=== PATIENT | female | born 1925 | race Asian ===

== ENCOUNTER 2016-05-08 14:38 | Inpatient (IN) | payer OTHER ==
[~2016-05-08] VITALS: Ht 157.5 cm; Wt 87.2 kg
[~2016-05-08 14:38] MED LIST: ACET-784 PO; AMLO-511 PO; ASPI-825 PO; ATOR20TA86 PO; FERR256T PO; MECL12.585 PO; METF500T7 PO; NAPR500T3 PO
[2016-05-08] MEDS ORDERED: SUCR1TAB22 PO (14:48)
[2016-05-08] MEDS ORDERED: DILTIAZEM HCL 5 MG/ML 5 ML VIAL IVP ONE ×2 (15:00→22:00)
[2016-05-08] MEDS ORDERED: SODIUM CHLORIDE 0.9% 1,000 ML IV ONE (15:00)
[2016-05-08 15:02] LABS: GLUCOSE,POINT OF CARE 220 MG/DL (70-110)
[2016-05-08 15:21] LABS: BASOPHILS % (AUTO) 0.3 % (0.0-2.0); EOSINOPHILS % (AUTO) 1.5 % (1.0-6.0); HEMATOCRIT 35.8 % (36-46); HEMOGLOBIN 11.6 g/dL (12.0-16.0); LYMPHOCYTES # (AUTO) 1.6 K/uL (1.0-4.8); LYMPHOCYTES % (AUTO) 21.1 % (22.0-44.0); MEAN CORPUSCULAR HEMOGLOBIN 30.4 pg (26.0-34.0); MEAN CORPUSCULAR HGB CONC 32.5 G/dL (31.0-37.0); MEAN CORPUSCULAR VOLUME 93 fL (80-100); MONOCYTES # (AUTO) 0.5 K/uL (0.1-1.0); MONOCYTES % (AUTO) 6.6 % (2.0-9.0); NEUTROPHILS # (AUTO) 5.4 K/uL (1.8-7.7); NEUTROPHILS % (AUTO) 70.5 % (40.0-70.0); PLATELET COUNT (AUTO) 216 K/uL (150-450); RED BLOOD CELL COUNT(AUTO) 3.83 MIL/uL (4.00-5.20); RED CELL DISTRIBUTION WIDTH 15.3 % (11.5-14.5); WHITE BLOOD COUNT (AUTO) 7.7 K/uL (4.5-11.0)
[2016-05-08 15:25] LABS: ANION GAP 9 mmol/L (8-16); CARBON DIOXIDE 26 mmol/L (22-29); CHLORIDE 100 mmol/L (98-107); CREATININE 1.21 mg/dL (0.60-1.30); GLOMERULAR FILTR. RATE CALC 42 mL/min (>60); POTASSIUM 4.1 mmol/L (3.5-5.1); SODIUM SERUM 135 mmol/L (136-145); UREA NITROGEN, BLOOD 21 mg/dL (7-18)
[2016-05-08 15:29] LABS: PROTHROMBIN TIME 10.4 SEC (9.4-11.6)
[2016-05-08 15:31] LABS: ALANINE AMINOTRANSFERASE 22 U/L (12-78); ALBUMIN 2.7 g/dL (3.4-5.0); AMYLASE 59 U/L (25-115); ASPARTATE AMINOTRANSFERASE 17 U/L (15-37); BILIRUBIN,TOTAL 0.5 mg/dL (0.1-1.0); CREATINE KINASE, TOTAL 62 U/L (26-192); TOTAL PROTEIN, SERUM 6.1 g/dL (6.4-8.2)
[2016-05-08 16:26] LABS: B-TYPE NATRIURETIC PEPTIDE 600 pg/mL (0-100)
[2016-05-08 17:11] LABS: APPEARANCE,URINE CLEAR (CLEAR); GLUCOSE, URINE (UA) NEGATIVE (NEGATIVE); KETONES,URINE NEGATIVE (NEGATIVE); LEUKOCYTE ESTERASE ,URINE NEGATIVE (NEGATIVE); OCCULT BLOOD,URINE NEGATIVE (NEGATIVE); PH,URINE 6.5 (5.0-8.0); PROTEIN,URINE NEGATIVE (NEGATIVE)
[2016-05-08 17:19] LABS: SQUAMOUS EPITHELIAL CELL,UR Few /LPF (None Seen)
[2016-05-08 17:24] LABS: RBC,URINE None Seen /HPF (0-2)
[2016-05-08 18:34] VITALS: BP 148/82
[2016-05-08 19:31] VITALS: BP 145/65
[2016-05-08] MEDS ORDERED: IPRATROPIUM BROMIDE 0.5 MG/2.5 ML NEB SOLUTION NEB PRN (20:15)
[2016-05-08] MEDS ORDERED: ONDANSETRON HCL 4 MG/2 ML VIAL IVP PRN (20:15)
[2016-05-08] MEDS ORDERED: ZOLPIDEM TARTRATE 5 MG TABLET PO PRN (20:15)
[2016-05-08] MEDS ORDERED: METOPROLOL SUCCINATE 25 MG ER TABLET PO ONE (20:15)
[2016-05-08] MEDS ORDERED: ALBUTEROL SULFATE 2.5 MG/0.5 ML NEB SOLUTION NEB PRN (20:15)
[2016-05-08] MEDS ORDERED: HEPARIN SODIUM,PORCINE 5,000 UNITS/ML VIAL IVP PRN ×2 (20:30)
[2016-05-08] MEDS ORDERED: HEPARIN SODIUM,PORCINE 5,000 UNITS/ML VIAL IVP ONE (20:30)
[2016-05-08] MEDS ORDERED: SODIUM CHLORIDE 0.9% 500 ML IV ONE (21:15)
[2016-05-08] MEDS: SUCRALFATE 1 GM TABLET PO SCH (21:16)
[2016-05-08] MEDS: ATORVASTATIN CALCIUM 40 MG TABLET PO SCH (21:16)
[2016-05-08 21:24] LABS: BASOPHILS # (AUTO) 0.07 K/uL (0.00-0.20); BASOPHILS % (AUTO) 0.9 % (0.0-2.0); EOSINOPHILS # (AUTO) 0.14 K/uL (0.00-0.70); EOSINOPHILS % (AUTO) 1.73 % (1.0-6.0); HEMATOCRIT 36.9 % (36-46); HEMOGLOBIN 12.1 g/dL (12.0-16.0); LYMPHOCYTES # (AUTO) 1.5 K/uL (1.0-4.8); LYMPHOCYTES % (AUTO) 18.5 % (22.0-44.0); MEAN CORPUSCULAR HEMOGLOBIN 30.7 pg (26.0-34.0); MEAN CORPUSCULAR HGB CONC 32.8 G/dL (31.0-37.0); MEAN CORPUSCULAR VOLUME 94 fL (80-100); MONOCYTES # (AUTO) 0.4 K/uL (0.1-1.0); MONOCYTES % (AUTO) 5.5 % (2.0-9.0); NEUTROPHILS # (AUTO) 5.8 K/uL (1.8-7.7); NEUTROPHILS % (AUTO) 73.4 % (40.0-70.0); PLATELET COUNT (AUTO) 211 K/uL (150-450); RED BLOOD CELL COUNT(AUTO) 3.94 MIL/uL (4.00-5.20); WHITE BLOOD COUNT (AUTO) 7.9 K/uL (4.5-11.0)
[2016-05-08] MEDS: HEPARIN SODIUM 25000 UNITS/D5W 250 ML IV PRN (21:41)
[2016-05-08 21:47] LABS: PROTHROMBIN TIME 10.5 SEC (9.4-11.6); THYROID STIMULATING HORMONE 3.55 uIU/mL (0.36-3.74)
[2016-05-08] MEDS ORDERED: DILTIAZEM HCL 125 MG in DEXTROSE 5%-WATER 100 ML IV PRN (21:57)
[2016-05-08 22:25] VITALS: BP 164/104
[2016-05-09] VITALS (9 sets, daily range): BP systolic 114–142; BP diastolic 56–77
[2016-05-09] MEDS ORDERED: SODIUM CHLORIDE 0.9% 250 ML IV ONE (04:28)
[2016-05-09 05:37] LABS: BASOPHILS # (AUTO) 0.04 K/uL (0.00-0.20); BASOPHILS % (AUTO) 0.4 % (0.0-2.0); EOSINOPHILS # (AUTO) 0.11 K/uL (0.00-0.70); HEMATOCRIT 34.3 % (36-46); HEMOGLOBIN 11.5 g/dL (12.0-16.0); LYMPHOCYTES # (AUTO) 1.6 K/uL (1.0-4.8); LYMPHOCYTES % (AUTO) 17.2 % (22.0-44.0); MEAN CORPUSCULAR HGB CONC 33.5 G/dL (31.0-37.0); MEAN CORPUSCULAR VOLUME 93 fL (80-100); MONOCYTES # (AUTO) 0.7 K/uL (0.1-1.0); NEUTROPHILS # (AUTO) 6.9 K/uL (1.8-7.7); NEUTROPHILS % (AUTO) 74.2 % (40.0-70.0); PLATELET COUNT (AUTO) 220 K/uL (150-450); RED BLOOD CELL COUNT(AUTO) 3.71 MIL/uL (4.00-5.20); WHITE BLOOD COUNT (AUTO) 9.3 K/uL (4.5-11.0)
[2016-05-09 05:47] LABS: ALBUMIN 2.4 g/dL (3.4-5.0); BILIRUBIN,TOTAL 0.7 mg/dL (0.1-1.0); CALCIUM, TOTAL 8.1 mg/dL (8.8-10.5); CREATININE 1.02 mg/dL (0.60-1.30); POTASSIUM 4.2 mmol/L (3.5-5.1); TOTAL PROTEIN, SERUM 5.8 g/dL (6.4-8.2)
[2016-05-09] MEDS ORDERED: DEXTROSE 50%-WATER 25 GM/50 ML SYRINGE IVP PRN (06:00)
[2016-05-09] MEDS: INSULIN ASPART 100 UNITS/ML SQ PRN ×3 (06:31→20:12)
[2016-05-09] MEDS: HYDROCODONE/ACETAMINOPHEN 5-325 MG TABLET PO PRN (07:54)
[2016-05-09] MEDS: GuaiFENesin/CODEINE [SUGAR FREE] 200-20MG/10 ML SYRUP UDCUP PO PRN ×3 (07:54→21:32)
[2016-05-09] MEDS: SUCRALFATE 1 GM TABLET PO SCH ×2 (08:01→20:02)
[2016-05-09] MEDS: ATORVASTATIN CALCIUM 40 MG TABLET PO SCH (08:01)
[2016-05-09] MEDS: PANTOPRAZOLE SODIUM 40 MG/VIAL IVP SCH (08:01)
[2016-05-09] MEDS ORDERED: ATOR40TA28 PO (11:38)
[2016-05-09] MEDS ORDERED: FERG325 PO (11:38)
[2016-05-09] MEDS ORDERED: MECL-111 PO (11:38)
[2016-05-09] MEDS ORDERED: AMIODARONE HCL 50 MG in DEXTROSE 5%-WATER 99 ML IV ONE (11:45)
[2016-05-09] MEDS ORDERED: AMIODARONE HCL 360 MG in DEXTROSE 5%-WATER 242.8 ML IV ONE (12:00)
[2016-05-09] MEDS ORDERED: 0.9% SODIUM CHLORIDE 10 ML SYRINGE IVP PRN (12:30)
[2016-05-09 12:54] LABS: INFLUENZA TYPE B NEGATIVE FOR TYPE B (NEGATIVE)
[2016-05-09] MEDS: HEPARIN SODIUM 25000 UNITS/D5W 250 ML IV PRN ×2 (17:31→21:26)
[2016-05-09] MEDS ORDERED: AMIODARONE HCL 540 MG in DEXTROSE 5%-WATER 239.2 ML IV ONE (18:00)
[2016-05-10 04:27] VITALS: BP 134/52
[2016-05-10] MEDS: HEPARIN SODIUM 25000 UNITS/D5W 250 ML IV PRN (04:58)
[2016-05-10] MEDS: INSULIN ASPART 100 UNITS/ML SQ PRN ×3 (06:31→23:12)
[2016-05-10 06:49] LABS: BASOPHILS % (AUTO) 0.4 % (0.0-2.0); EOSINOPHILS % (AUTO) 1.2 % (1.0-6.0); HEMATOCRIT 32.3 % (36-46); HEMOGLOBIN 10.5 g/dL (12.0-16.0); LYMPHOCYTES # (AUTO) 1.4 K/uL (1.0-4.8); LYMPHOCYTES % (AUTO) 15.2 % (22.0-44.0); MEAN CORPUSCULAR HEMOGLOBIN 30.7 pg (26.0-34.0); MEAN CORPUSCULAR HGB CONC 32.5 G/dL (31.0-37.0); MEAN CORPUSCULAR VOLUME 95 fL (80-100); MONOCYTES # (AUTO) 0.8 K/uL (0.1-1.0); MONOCYTES % (AUTO) 8.4 % (2.0-9.0); NEUTROPHILS % (AUTO) 74.8 % (40.0-70.0); PLATELET COUNT (AUTO) 187 K/uL (150-450); RED BLOOD CELL COUNT(AUTO) 3.41 MIL/uL (4.00-5.20); RED CELL DISTRIBUTION WIDTH 15.2 % (11.5-14.5); WHITE BLOOD COUNT (AUTO) 9.4 K/uL (4.5-11.0)
[2016-05-10 07:24] LABS: ALBUMIN 2.3 g/dL (3.4-5.0); BILIRUBIN,TOTAL 0.9 mg/dL (0.1-1.0); CALCIUM, TOTAL 7.9 mg/dL (8.8-10.5); CREATININE 1.23 mg/dL (0.60-1.30); POTASSIUM 4.3 mmol/L (3.5-5.1); TOTAL PROTEIN, SERUM 5.9 g/dL (6.4-8.2)
[2016-05-10 07:37] VITALS: BP 143/58
[2016-05-10 08:11] LABS: MAGNESIUM 1.7 mg/dL (1.80-2.40)
[2016-05-10] MEDS: SUCRALFATE 1 GM TABLET PO SCH ×2 (10:05→21:18)
[2016-05-10] MEDS: PANTOPRAZOLE SODIUM 40 MG/VIAL IVP SCH (10:05)
[2016-05-10] MEDS: ATORVASTATIN CALCIUM 40 MG TABLET PO SCH (10:05)
[2016-05-10] MEDS: GuaiFENesin/CODEINE [SUGAR FREE] 200-20MG/10 ML SYRUP UDCUP PO PRN (11:02)
[2016-05-10] MEDS: HYDROCODONE/ACETAMINOPHEN 5-325 MG TABLET PO PRN ×2 (11:03→21:18)
[2016-05-10] MEDS: APIXABAN 2.5 MG TABLET PO SCH ×2 (12:09→21:18)
[2016-05-10] MEDS: AMIODARONE HCL 750 MG in DEXTROSE 5%-WATER 485 ML IV SCH (12:10)
[2016-05-10 12:11] VITALS: BP 110/60
[2016-05-10] MEDS ORDERED: BARIUM SULFATE 0.1% SUSPENSION 450 ML BOTTLE ONE ×2 (15:14→15:15)
[2016-05-10] MEDS ORDERED: SODIUM CHLORIDE 0.45% 1,000 ML IV ONE (15:15)
[2016-05-10 15:50] VITALS: BP 122/71
[2016-05-10] MEDS: AMIODARONE HCL 200 MG TABLET PO SCH ×2 (15:54→21:22)
[2016-05-10] MEDS ORDERED: IOVERSOL 350 MG/ML 150 ML VIAL ONE (18:15)
[2016-05-10] MEDS ORDERED: SODIUM CHLORIDE 0.9% 100 ML ONE (18:17)
[2016-05-10 20:33] VITALS: BP 115/52
[2016-05-10 22:46] LABS: GLUCOSE COMMENT 1 Received Meds; GLUCOSE,POINT OF CARE 163 MG/DL (70-110)
[2016-05-10 22:51] LABS: GLUCOSE,POINT OF CARE 123 MG/DL (70-110)
[2016-05-10 22:51] LABS: GLUCOSE COMMENT 1 Received Meds; GLUCOSE,POINT OF CARE 148 MG/DL (70-110)
[2016-05-10 23:48] VITALS: BP 108/50
[2016-05-11] VITALS (19 sets, daily range): BP systolic 93–138; BP diastolic 37–72
[2016-05-11] MEDS: INSULIN ASPART 100 UNITS/ML SQ PRN ×4 (06:37→20:35)
[2016-05-11] MEDS: APIXABAN 2.5 MG TABLET PO SCH ×2 (08:07→08:16)
[2016-05-11] MEDS: GuaiFENesin/CODEINE [SUGAR FREE] 200-20MG/10 ML SYRUP UDCUP PO PRN ×3 (08:07→20:29)
[2016-05-11] MEDS: SUCRALFATE 1 GM TABLET PO SCH ×2 (08:07→20:28)
[2016-05-11] MEDS: PANTOPRAZOLE SODIUM 40 MG/VIAL IVP SCH (08:08)
[2016-05-11] MEDS: ATORVASTATIN CALCIUM 20 MG TABLET PO SCH (08:08)
[2016-05-11] MEDS: AMIODARONE HCL 200 MG TABLET PO SCH ×3 (08:08→20:28)
[2016-05-11] MEDS ORDERED: MAGNESIUM HYDROXIDE SUSPENSION 30 ML UDCUP PO PRN (08:15)
[2016-05-11] MEDS: DOCUSATE SODIUM 100 MG CAPSULE PO SCH ×2 (08:19→20:28)
[2016-05-11 08:25] LABS: ALBUMIN 2.2 g/dL (3.4-5.0); BILIRUBIN,TOTAL 0.9 mg/dL (0.1-1.0); CALCIUM, TOTAL 7.8 mg/dL (8.8-10.5); CREATININE 1.44 mg/dL (0.60-1.30); MAGNESIUM 1.7 mg/dL (1.80-2.40); POTASSIUM 4.4 mmol/L (3.5-5.1); TOTAL PROTEIN, SERUM 6.1 g/dL (6.4-8.2)
[2016-05-11 08:31] LABS: BASOPHILS # (AUTO) 0.01 K/uL (0.00-0.20); BASOPHILS % (AUTO) 0.1 % (0.0-2.0); EOSINOPHILS # (AUTO) 0.08 K/uL (0.00-0.70); EOSINOPHILS % (AUTO) 0.83 % (1.0-6.0); HEMATOCRIT 25.1 % (36-46); HEMOGLOBIN 8.2 g/dL (12.0-16.0); LYMPHOCYTES # (AUTO) 0.7 K/uL (1.0-4.8); LYMPHOCYTES % (AUTO) 7.5 % (22.0-44.0); MEAN CORPUSCULAR HEMOGLOBIN 30.5 pg (26.0-34.0); MEAN CORPUSCULAR HGB CONC 32.7 G/dL (31.0-37.0); MEAN CORPUSCULAR VOLUME 93 fL (80-100); MONOCYTES # (AUTO) 0.7 K/uL (0.1-1.0); MONOCYTES % (AUTO) 6.6 % (2.0-9.0); NEUTROPHILS # (AUTO) 8.4 K/uL (1.8-7.7); PLATELET COUNT (AUTO) 207 K/uL (150-450); RED CELL DISTRIBUTION WIDTH 15.5 % (11.5-14.5); WHITE BLOOD COUNT (AUTO) 9.8 K/uL (4.5-11.0)
[2016-05-11] MEDS ORDERED: MAGNESIUM OXIDE 400 MG TABLET PO ONE (08:45)
[2016-05-11] MEDS: ACETAMINOPHEN 325 MG TABLET PO PRN (11:04)
[2016-05-11] MEDS: AMIODARONE HCL 750 MG in DEXTROSE 5%-WATER 485 ML IV SCH (13:03)
[2016-05-11] MEDS ORDERED: SODIUM CHLORIDE 0.9% 250 ML IV ONE (13:08)
[2016-05-11 17:33] LABS: GLUCOSE,POINT OF CARE 137 MG/DL (70-110)
[2016-05-11 17:33] LABS: GLUCOSE COMMENT 1 Received Meds; GLUCOSE,POINT OF CARE 207 MG/DL (70-110)
[2016-05-11 17:37] LABS: GLUCOSE,POINT OF CARE 182 MG/DL (70-110)
[2016-05-11] MEDS ORDERED: FUROSEMIDE 20 MG/2 ML VIAL IVP ONE (21:00)
[2016-05-12 01:32] VITALS: BP 159/98
[2016-05-12 04:07] LABS: GLUCOSE,POINT OF CARE 141 MG/DL (70-110)
[2016-05-12 04:07] LABS: GLUCOSE COMMENT 1 Received Meds; GLUCOSE,POINT OF CARE 163 MG/DL (70-110)
[2016-05-12 04:10] VITALS: BP 145/87
[2016-05-12] MEDS: INSULIN ASPART 100 UNITS/ML SQ PRN ×4 (06:32→20:38)
[2016-05-12 07:10] LABS: BASOPHILS # (AUTO) 0.01 K/uL (0.00-0.20); BASOPHILS % (AUTO) 0.1 % (0.0-2.0); EOSINOPHILS # (AUTO) 0.12 K/uL (0.00-0.70); HEMOGLOBIN 10.5 g/dL (12.0-16.0); LYMPHOCYTES # (AUTO) 0.9 K/uL (1.0-4.8); LYMPHOCYTES % (AUTO) 8.7 % (22.0-44.0); MEAN CORPUSCULAR HEMOGLOBIN 30.9 pg (26.0-34.0); MEAN CORPUSCULAR HGB CONC 33.9 G/dL (31.0-37.0); MEAN CORPUSCULAR VOLUME 91 fL (80-100); MONOCYTES # (AUTO) 0.9 K/uL (0.1-1.0); MONOCYTES % (AUTO) 8.5 % (2.0-9.0); NEUTROPHILS # (AUTO) 8.7 K/uL (1.8-7.7); NEUTROPHILS % (AUTO) 81.6 % (40.0-70.0); PLATELET COUNT (AUTO) 208 K/uL (150-450); RED CELL DISTRIBUTION WIDTH 15.5 % (11.5-14.5); WHITE BLOOD COUNT (AUTO) 10.6 K/uL (4.5-11.0)
[2016-05-12 07:17] LABS: ALBUMIN 2.1 g/dL (3.4-5.0); BILIRUBIN,TOTAL 1.1 mg/dL (0.1-1.0); CALCIUM, TOTAL 8.1 mg/dL (8.8-10.5); CREATININE 1.54 mg/dL (0.60-1.30); MAGNESIUM 1.8 mg/dL (1.80-2.40); POTASSIUM 4.7 mmol/L (3.5-5.1); TOTAL PROTEIN, SERUM 6.1 g/dL (6.4-8.2)
[2016-05-12 07:43] VITALS: BP 148/84
[2016-05-12 08:52] LABS: GLUCOSE,POINT OF CARE 173 MG/DL (70-110)
[2016-05-12] MEDS: GuaiFENesin/CODEINE [SUGAR FREE] 200-20MG/10 ML SYRUP UDCUP PO PRN ×3 (09:42→21:33)
[2016-05-12] MEDS: PANTOPRAZOLE SODIUM 40 MG/VIAL IVP SCH (09:43)
[2016-05-12] MEDS: SUCRALFATE 1 GM TABLET PO SCH ×2 (09:44→20:34)
[2016-05-12] MEDS: ATORVASTATIN CALCIUM 20 MG TABLET PO SCH (09:44)
[2016-05-12] MEDS: AMIODARONE HCL 200 MG TABLET PO SCH ×3 (09:44→20:34)
[2016-05-12] MEDS: DOCUSATE SODIUM 100 MG CAPSULE PO SCH ×2 (09:44→20:34)
[2016-05-12 11:30] VITALS: BP 162/86
[2016-05-12] MEDS: AMIODARONE HCL 750 MG in DEXTROSE 5%-WATER 485 ML IV SCH (13:29)
[2016-05-12 15:28] VITALS: BP 118/61
[2016-05-12] MEDS: MethylPREDNISolone SOD SUCC 40 MG/ML VIAL IVP SCH ×2 (18:57→23:17)
[2016-05-12 19:35] VITALS: BP 125/56
[2016-05-12] MEDS ORDERED: DIGOXIN 250 MCG/ML 2 ML AMP IVP ONE (19:45)
[2016-05-12] MEDS: IPRATROPIUM BROMIDE 0.5 MG/2.5 ML NEB SOLUTION NEB SCH ×2 (20:07→22:45)
[2016-05-12] MEDS: ALBUTEROL SULFATE 2.5 MG/0.5 ML NEB SOLUTION NEB SCH ×2 (20:07→22:45)
[2016-05-12] MEDS ORDERED: BISACODYL 10 MG RECTAL RECTAL SUPPOSITORY PR PRN (22:15)
[2016-05-13 00:07] VITALS: BP 112/76
[2016-05-13] MEDS: IPRATROPIUM BROMIDE 0.5 MG/2.5 ML NEB SOLUTION NEB SCH ×6 (02:50→23:22)
[2016-05-13] MEDS: ALBUTEROL SULFATE 2.5 MG/0.5 ML NEB SOLUTION NEB SCH ×3 (02:50→11:43)
[2016-05-13 04:15] VITALS: BP 137/79
[2016-05-13] MEDS: GuaiFENesin/CODEINE [SUGAR FREE] 200-20MG/10 ML SYRUP UDCUP PO PRN ×4 (04:38→22:58)
[2016-05-13] MEDS: INSULIN ASPART 100 UNITS/ML SQ PRN ×4 (06:12→21:38)
[2016-05-13] MEDS: MethylPREDNISolone SOD SUCC 40 MG/ML VIAL IVP SCH ×4 (06:19→23:02)
[2016-05-13] MEDS ORDERED: *CLINICAL-LEVOFLOXACIN IVPB DOSING CLINICAL ONE ×2 (06:30)
[2016-05-13 07:12] LABS: GLUCOSE COMMENT 1 Received Meds; GLUCOSE,POINT OF CARE 183 MG/DL (70-110)
[2016-05-13 07:28] VITALS: BP 110/54
[2016-05-13 07:57] LABS: EOSINOPHILS % (AUTO) 0 % (1.0-6.0); HEMATOCRIT 32.1 % (36-46); HEMOGLOBIN 10.5 g/dL (12.0-16.0); LYMPHOCYTES # (AUTO) 0.2 K/uL (1.0-4.8); LYMPHOCYTES % (AUTO) 1.7 % (22.0-44.0); MEAN CORPUSCULAR HEMOGLOBIN 30.2 pg (26.0-34.0); MEAN CORPUSCULAR HGB CONC 32.8 G/dL (31.0-37.0); MEAN CORPUSCULAR VOLUME 92 fL (80-100); MONOCYTES # (AUTO) 0.2 K/uL (0.1-1.0); MONOCYTES % (AUTO) 1.9 % (2.0-9.0); NEUTROPHILS # (AUTO) 11.6 K/uL (1.8-7.7); PLATELET COUNT (AUTO) 244 K/uL (150-450); RED BLOOD CELL COUNT(AUTO) 3.49 MIL/uL (4.00-5.20); WHITE BLOOD COUNT (AUTO) 12.1 K/uL (4.5-11.0)
[2016-05-13 08:13] LABS: NEUTROPHILS % (AUTO) 96.4 % (40.0-70.0)
[2016-05-13 08:27] LABS: ALBUMIN 2.1 g/dL (3.4-5.0); BILIRUBIN,TOTAL 0.7 mg/dL (0.1-1.0); CALCIUM, TOTAL 8.6 mg/dL (8.8-10.5); CREATININE 1.47 mg/dL (0.60-1.30); POTASSIUM 4.4 mmol/L (3.5-5.1); TOTAL PROTEIN, SERUM 6.6 g/dL (6.4-8.2)
[2016-05-13] MEDS ORDERED: LEVOFLOXACIN 750 MG/D5% WATER 150 ML IV ONE (09:00)
[2016-05-13] MEDS: SUCRALFATE 1 GM TABLET PO SCH ×2 (09:02→21:35)
[2016-05-13] MEDS: BENZONATATE 100 MG CAPSULE PO SCH ×3 (09:02→23:03)
[2016-05-13] MEDS: ATORVASTATIN CALCIUM 20 MG TABLET PO SCH (09:02)
[2016-05-13] MEDS: AMIODARONE HCL 200 MG TABLET PO SCH ×3 (09:02→21:36)
[2016-05-13] MEDS: DOCUSATE SODIUM 100 MG CAPSULE PO SCH ×2 (09:02→21:35)
[2016-05-13] MEDS: PANTOPRAZOLE SODIUM 40 MG/VIAL IVP SCH (09:03)
[2016-05-13] MEDS ORDERED: SODIUM CHLORIDE 0.9% 250 ML IV ONE (10:44)
[2016-05-13 11:49] VITALS: BP 154/64
[2016-05-13 12:37] LABS: GLUCOSE COMMENT 1 Received Meds; GLUCOSE,POINT OF CARE 163 MG/DL (70-110)
[2016-05-13] MEDS: AMIODARONE HCL 750 MG in DEXTROSE 5%-WATER 485 ML IV SCH (14:16)
[2016-05-13 15:58] VITALS: BP 128/72
[2016-05-13] MEDS: ACETAMINOPHEN 325 MG TABLET PO PRN (18:38)
[2016-05-13 19:44] VITALS: BP 136/67
[2016-05-13 23:42] LABS: GLUCOSE COMMENT 1 Received Meds; GLUCOSE,POINT OF CARE 327 MG/DL (70-110)
[2016-05-13 23:42] LABS: GLUCOSE COMMENT 1 Received Meds; GLUCOSE,POINT OF CARE 217 MG/DL (70-110)
[2016-05-14 00:16] VITALS: BP 113/64
[2016-05-14] MEDS: IPRATROPIUM BROMIDE 0.5 MG/2.5 ML NEB SOLUTION NEB SCH ×6 (03:00→23:03)
[2016-05-14 04:56] VITALS: BP 116/59
[2016-05-14] MEDS: MethylPREDNISolone SOD SUCC 40 MG/ML VIAL IVP SCH ×3 (05:39→17:42)
[2016-05-14] MEDS: INSULIN ASPART 100 UNITS/ML SQ PRN ×4 (05:42→21:30)
[2016-05-14 06:34] LABS: EOSINOPHILS % (AUTO) 0 % (1.0-6.0); HEMATOCRIT 28.1 % (36-46); HEMOGLOBIN 9.2 g/dL (12.0-16.0); LYMPHOCYTES # (AUTO) 0.4 K/uL (1.0-4.8); LYMPHOCYTES % (AUTO) 2.8 % (22.0-44.0); MEAN CORPUSCULAR HEMOGLOBIN 30.3 pg (26.0-34.0); MEAN CORPUSCULAR HGB CONC 32.7 G/dL (31.0-37.0); MEAN CORPUSCULAR VOLUME 93 fL (80-100); MONOCYTES # (AUTO) 0.3 K/uL (0.1-1.0); MONOCYTES % (AUTO) 2.2 % (2.0-9.0); PLATELET COUNT (AUTO) 246 K/uL (150-450); RED BLOOD CELL COUNT(AUTO) 3.03 MIL/uL (4.00-5.20); WHITE BLOOD COUNT (AUTO) 15.8 K/uL (4.5-11.0)
[2016-05-14 06:59] LABS: ALBUMIN 2.1 g/dL (3.4-5.0); BILIRUBIN,TOTAL 0.6 mg/dL (0.1-1.0); CALCIUM, TOTAL 8.1 mg/dL (8.8-10.5); CREATININE 1.81 mg/dL (0.60-1.30); MAGNESIUM 2.2 mg/dL (1.80-2.40); POTASSIUM 5.1 mmol/L (3.5-5.1)
[2016-05-14] MEDS: BENZONATATE 100 MG CAPSULE PO SCH ×2 (07:59→16:00)
[2016-05-14] MEDS: GuaiFENesin/CODEINE [SUGAR FREE] 200-20MG/10 ML SYRUP UDCUP PO PRN ×3 (07:59→20:52)
[2016-05-14] MEDS: PANTOPRAZOLE SODIUM 40 MG/VIAL IVP SCH (08:02)
[2016-05-14 08:03] VITALS: BP 131/82
[2016-05-14] MEDS: DOCUSATE SODIUM 100 MG CAPSULE PO SCH ×2 (09:00→20:51)
[2016-05-14] MEDS: SUCRALFATE 1 GM TABLET PO SCH ×2 (09:10→20:51)
[2016-05-14] MEDS: AMIODARONE HCL 200 MG TABLET PO SCH ×3 (09:10→20:51)
[2016-05-14] MEDS: ATORVASTATIN CALCIUM 20 MG TABLET PO SCH (09:10)
[2016-05-14 10:31] LABS: GLUCOSE,POINT OF CARE 251 MG/DL (70-110)
[2016-05-14 11:23] VITALS: BP 124/58
[2016-05-14] MEDS: AMIODARONE HCL 750 MG in DEXTROSE 5%-WATER 485 ML IV SCH (12:00)
[2016-05-14] MEDS ORDERED: IOVERSOL 350 MG/ML 100 ML VIAL ONE (12:49)
[2016-05-14] MEDS ORDERED: SODIUM CHLORIDE 0.9% 0 ML ONE (12:50)
[2016-05-14] MEDS ORDERED: BARIUM SULFATE 0.1% SUSPENSION 450 ML BOTTLE ONE (12:51)
[2016-05-14 16:26] VITALS: BP 143/86
[2016-05-14 19:33] VITALS: BP 117/59
[2016-05-14 21:57] LABS: GLUCOSE COMMENT 1 Received Meds; GLUCOSE,POINT OF CARE 351 MG/DL (70-110)
[2016-05-14 21:57] LABS: GLUCOSE COMMENT 1 Received Meds; GLUCOSE,POINT OF CARE 222 MG/DL (70-110)
[2016-05-15] VITALS (7 sets, daily range): BP systolic 104–151; BP diastolic 55–72
[2016-05-15] MEDS: BENZONATATE 100 MG CAPSULE PO SCH ×3 (00:14→16:20)
[2016-05-15] MEDS: MethylPREDNISolone SOD SUCC 40 MG/ML VIAL IVP SCH ×2 (00:14→05:48)
[2016-05-15] MEDS: IPRATROPIUM BROMIDE 0.5 MG/2.5 ML NEB SOLUTION NEB SCH ×6 (03:00→23:00)
[2016-05-15] MEDS: INSULIN ASPART 100 UNITS/ML SQ PRN ×4 (06:13→21:27)
[2016-05-15 07:22] LABS: GLUCOSE,POINT OF CARE 236 MG/DL (70-110)
[2016-05-15 07:22] LABS: GLUCOSE COMMENT 1 Received Meds; GLUCOSE,POINT OF CARE 202 MG/DL (70-110)
[2016-05-15 07:26] LABS: GLUCOSE COMMENT 1 Received Meds; GLUCOSE,POINT OF CARE 230 MG/DL (70-110)
[2016-05-15 08:07] LABS: EOSINOPHILS % (AUTO) 0 % (1.0-6.0); HEMATOCRIT 29.6 % (36-46); HEMOGLOBIN 9.6 g/dL (12.0-16.0); LYMPHOCYTES # (AUTO) 0.3 K/uL (1.0-4.8); LYMPHOCYTES % (AUTO) 2.2 % (22.0-44.0); MEAN CORPUSCULAR HGB CONC 32.4 G/dL (31.0-37.0); MEAN CORPUSCULAR VOLUME 92 fL (80-100); MONOCYTES # (AUTO) 0.3 K/uL (0.1-1.0); MONOCYTES % (AUTO) 1.8 % (2.0-9.0); NEUTROPHILS # (AUTO) 13.4 K/uL (1.8-7.7); PLATELET COUNT (AUTO) 286 K/uL (150-450); RED CELL DISTRIBUTION WIDTH 14.9 % (11.5-14.5); WHITE BLOOD COUNT (AUTO) 13.9 K/uL (4.5-11.0)
[2016-05-15 08:32] LABS: ALBUMIN 2.2 g/dL (3.4-5.0); BILIRUBIN,TOTAL 0.6 mg/dL (0.1-1.0); CALCIUM, TOTAL 8.4 mg/dL (8.8-10.5); CREATININE 1.54 mg/dL (0.60-1.30); MAGNESIUM 2.4 mg/dL (1.80-2.40)
[2016-05-15] MEDS ORDERED: LEVOFLOXACIN 500 MG/D5% WATER 100 ML IV SCH (09:00)
[2016-05-15] MEDS: LEVOFLOXACIN 750 MG/D5% WATER 150 ML IV SCH (09:05)
[2016-05-15] MEDS: AMIODARONE HCL 200 MG TABLET PO SCH ×2 (09:06→16:20)
[2016-05-15] MEDS: ATORVASTATIN CALCIUM 20 MG TABLET PO SCH (09:06)
[2016-05-15] MEDS: GuaiFENesin/CODEINE [SUGAR FREE] 200-20MG/10 ML SYRUP UDCUP PO PRN ×3 (09:06→20:23)
[2016-05-15] MEDS: DOCUSATE SODIUM 100 MG CAPSULE PO SCH ×2 (09:06→20:24)
[2016-05-15] MEDS: PredniSONE 20 MG TABLET PO SCH (09:06)
[2016-05-15] MEDS: SUCRALFATE 1 GM TABLET PO SCH ×2 (09:06→20:24)
[2016-05-15] MEDS: PANTOPRAZOLE SODIUM 40 MG/VIAL IVP SCH (09:06)
[2016-05-15 14:02] LABS: GLUCOSE,POINT OF CARE 240 MG/DL (70-110)
[2016-05-15 14:02] LABS: GLUCOSE COMMENT 1 Received Meds; GLUCOSE,POINT OF CARE 208 MG/DL (70-110)
[2016-05-15] MEDS: ACETAMINOPHEN 325 MG TABLET PO PRN (20:04)
[2016-05-15 20:06] LABS: GLUCOSE COMMENT 1 Received Meds; GLUCOSE,POINT OF CARE 196 MG/DL (70-110)
[2016-05-15] MEDS ORDERED: AMIODARONE HCL 200 MG TABLET PO SCH (21:00)
[2016-05-16] MEDS: GuaiFENesin/CODEINE [SUGAR FREE] 200-20MG/10 ML SYRUP UDCUP PO PRN ×3 (00:26→21:14)
[2016-05-16] MEDS: BENZONATATE 100 MG CAPSULE PO SCH ×3 (00:26→16:50)
[2016-05-16] MEDS: IPRATROPIUM BROMIDE 0.5 MG/2.5 ML NEB SOLUTION NEB SCH ×6 (03:00→23:00)
[2016-05-16 04:54] VITALS: BP 142/92
[2016-05-16] MEDS: INSULIN ASPART 100 UNITS/ML SQ PRN ×4 (05:59→21:22)
[2016-05-16 07:21] VITALS: BP 109/52
[2016-05-16 07:45] LABS: BASOPHILS # (AUTO) 0.01 K/uL (0.00-0.20); BASOPHILS % (AUTO) 0.1 % (0.0-2.0); EOSINOPHILS % (AUTO) 0.03 % (1.0-6.0); HEMATOCRIT 30.9 % (36-46); HEMOGLOBIN 10.3 g/dL (12.0-16.0); LYMPHOCYTES # (AUTO) 0.4 K/uL (1.0-4.8); LYMPHOCYTES % (AUTO) 3.8 % (22.0-44.0); MEAN CORPUSCULAR HEMOGLOBIN 30.5 pg (26.0-34.0); MEAN CORPUSCULAR HGB CONC 33.3 G/dL (31.0-37.0); MEAN CORPUSCULAR VOLUME 92 fL (80-100); MONOCYTES # (AUTO) 0.6 K/uL (0.1-1.0); MONOCYTES % (AUTO) 5.5 % (2.0-9.0); NEUTROPHILS # (AUTO) 10.1 K/uL (1.8-7.7); PLATELET COUNT (AUTO) 318 K/uL (150-450); RED BLOOD CELL COUNT(AUTO) 3.37 MIL/uL (4.00-5.20); RED CELL DISTRIBUTION WIDTH 14.8 % (11.5-14.5); WHITE BLOOD COUNT (AUTO) 11.1 K/uL (4.5-11.0)
[2016-05-16 07:59] LABS: ALBUMIN 2.1 g/dL (3.4-5.0); BILIRUBIN,TOTAL 0.5 mg/dL (0.1-1.0); CALCIUM, TOTAL 8.2 mg/dL (8.8-10.5); CREATININE 1.51 mg/dL (0.60-1.30); MAGNESIUM 2.4 mg/dL (1.80-2.40); POTASSIUM 4.6 mmol/L (3.5-5.1); TOTAL PROTEIN, SERUM 5.9 g/dL (6.4-8.2)
[2016-05-16 08:06] LABS: NEUTROPHILS % (AUTO) 90.6 % (40.0-70.0)
[2016-05-16] MEDS: PredniSONE 20 MG TABLET PO SCH (09:28)
[2016-05-16] MEDS: DOCUSATE SODIUM 100 MG CAPSULE PO SCH ×2 (09:29→21:14)
[2016-05-16] MEDS: AMIODARONE HCL 200 MG TABLET PO SCH ×3 (09:31→21:14)
[2016-05-16] MEDS: SUCRALFATE 1 GM TABLET PO SCH ×2 (09:32→21:14)
[2016-05-16] MEDS: MECLIZINE HCL 25 MG TABLET PO PRN (09:35)
[2016-05-16] MEDS: ATORVASTATIN CALCIUM 20 MG TABLET PO SCH (09:36)
[2016-05-16] MEDS: PANTOPRAZOLE SODIUM 40 MG/VIAL IVP SCH (09:42)
[2016-05-16 11:02] VITALS: BP 119/68
[2016-05-16 15:25] VITALS: BP 102/72
[2016-05-16 17:36] LABS: GLUCOSE COMMENT 1 Received Meds; GLUCOSE,POINT OF CARE 155 MG/DL (70-110)
[2016-05-16 18:37] LABS: GLUCOSE COMMENT 1 Received Meds; GLUCOSE,POINT OF CARE 247 MG/DL (70-110)
[2016-05-16 19:14] VITALS: BP 134/69
[2016-05-17] VITALS (7 sets, daily range): BP systolic 103–136; BP diastolic 55–79
[2016-05-17] MEDS: BENZONATATE 100 MG CAPSULE PO SCH ×4 (00:22→23:31)
[2016-05-17] MEDS: GuaiFENesin/CODEINE [SUGAR FREE] 200-20MG/10 ML SYRUP UDCUP PO PRN ×4 (01:15→23:31)
[2016-05-17] MEDS: IPRATROPIUM BROMIDE 0.5 MG/2.5 ML NEB SOLUTION NEB SCH ×5 (03:00→19:27)
[2016-05-17] MEDS: INSULIN ASPART 100 UNITS/ML SQ PRN ×4 (06:35→21:11)
[2016-05-17 07:32] LABS: GLUCOSE COMMENT 1 Received Meds; GLUCOSE,POINT OF CARE 212 MG/DL (70-110)
[2016-05-17 07:42] LABS: GLUCOSE COMMENT 1 Received Meds; GLUCOSE,POINT OF CARE 183 MG/DL (70-110)
[2016-05-17] MEDS: PANTOPRAZOLE SODIUM 40 MG/VIAL IVP SCH (08:54)
[2016-05-17] MEDS: LEVOFLOXACIN 750 MG/D5% WATER 150 ML IV SCH (08:54)
[2016-05-17] MEDS: ATORVASTATIN CALCIUM 20 MG TABLET PO SCH (08:55)
[2016-05-17] MEDS: PredniSONE 20 MG TABLET PO SCH (08:55)
[2016-05-17] MEDS: DOCUSATE SODIUM 100 MG CAPSULE PO SCH ×2 (08:55→20:10)
[2016-05-17] MEDS: AMIODARONE HCL 200 MG TABLET PO SCH ×3 (08:55→20:10)
[2016-05-17] MEDS: SUCRALFATE 1 GM TABLET PO SCH ×2 (08:56→20:10)
[2016-05-17] MEDS ORDERED: SODIUM CHLORIDE 0.9% 100 ML ONE (08:57)
[2016-05-17 12:17] LABS: GLUCOSE COMMENT 1 Received Meds; GLUCOSE,POINT OF CARE 287 MG/DL (70-110)
[2016-05-17 12:27] LABS: GLUCOSE COMMENT 1 Received Meds; GLUCOSE,POINT OF CARE 174 MG/DL (70-110)
[2016-05-17] MEDS ORDERED: DIGOXIN 250 MCG/ML 2 ML AMP IVP ONE ×2 (13:15→14:00)
[2016-05-17 19:57] LABS: GLUCOSE COMMENT 1 Received Meds; GLUCOSE,POINT OF CARE 377 MG/DL (70-110)
[2016-05-17 19:57] LABS: GLUCOSE,POINT OF CARE 123 MG/DL (70-110)
[2016-05-17] MEDS ORDERED: INSULIN ASPART 100 UNITS/ML SQ ONE (21:15)
[2016-05-18] MEDS: IPRATROPIUM BROMIDE 0.5 MG/2.5 ML NEB SOLUTION NEB SCH ×4 (00:06→12:45)
[2016-05-18 04:50] VITALS: BP 140/67
[2016-05-18 07:41] VITALS: BP 125/84
[2016-05-18] MEDS: ATORVASTATIN CALCIUM 20 MG TABLET PO SCH (08:55)
[2016-05-18] MEDS: PredniSONE 20 MG TABLET PO SCH (08:55)
[2016-05-18] MEDS: MECLIZINE HCL 25 MG TABLET PO PRN (08:55)
[2016-05-18] MEDS: AMIODARONE HCL 200 MG TABLET PO SCH ×2 (08:55→16:22)
[2016-05-18] MEDS: PANTOPRAZOLE SODIUM 40 MG/VIAL IVP SCH (08:55)
[2016-05-18] MEDS: DOCUSATE SODIUM 100 MG CAPSULE PO SCH (08:55)
[2016-05-18] MEDS: BENZONATATE 100 MG CAPSULE PO SCH ×2 (08:55→16:22)
[2016-05-18] MEDS: GuaiFENesin/CODEINE [SUGAR FREE] 200-20MG/10 ML SYRUP UDCUP PO PRN ×2 (08:55→16:22)
[2016-05-18] MEDS: SUCRALFATE 1 GM TABLET PO SCH (08:55)
[2016-05-18 11:40] VITALS: BP 136/83
[2016-05-18 11:43] LABS: GLUCOSE COMMENT 1 Received Meds; GLUCOSE,POINT OF CARE 403 MG/DL (70-110)
[2016-05-18] MEDS ORDERED: DIGOXIN 125 MCG TABLET PO ONE (12:15)
[2016-05-18] MEDS ORDERED: AMIO200T44 PO (13:31)
[2016-05-18] MEDS ORDERED: ATOR20TA86 PO (13:33)
[2016-05-18] MEDS ORDERED: BENZ-26 PO (13:34)
[2016-05-18] MEDS ORDERED: DSS100 PO (13:34)
[2016-05-18] MEDS ORDERED: IPRNEB IH (13:34)
[2016-05-18] MEDS ORDERED: LEVO750T21 PO (13:36)
[2016-05-18] MEDS ORDERED: PRED20 PO (13:36)
[2016-05-18] MEDS ORDERED: PANT40TA25 PO (13:36)
[2016-05-18] MEDS ORDERED: SUCR1TAB PO (13:38)
[2016-05-18] MEDS ORDERED: GLYB5 PO (13:39)
[2016-05-18] MEDS ORDERED: DIGO125T PO (13:39)
[2016-05-18 15:34] VITALS: BP 140/67
[2016-05-19] MEDS ORDERED: DIGOXIN 125 MCG TABLET PO SCH (09:00)
[2016-05-19 18:08] LABS: GLUCOSE,POINT OF CARE 97 MG/DL (70-110)
[2016-05-19 18:08] LABS: GLUCOSE,POINT OF CARE 136 MG/DL (70-110)
== END 2016-05-18 16:40 | DRG 291 ==
LOC: EMS 14:45 → 5N 17:32 → ICU 22:05 → 5S 05-09 17:45
PROVIDERS: ADMIT Hospitalist; ATTEND Hospitalist
PROC: 30233N1 Transfusion of Nonautologous Red Blood Cells into Peripheral Vein, Percutaneous Approach (ICD-10-PCS; principal; 2016-05-11)
DX: I50.31 Acute diastolic (congestive) heart failure (principal); J96.01 Acute respiratory failure with hypoxia; J18.9 Pneumonia, unspecified organism; E43 Unspecified severe protein-calorie malnutrition; N17.9 Acute kidney failure, unspecified; I87.1 Compression of vein; J44.0 Chronic obstructive pulmonary disease with (acute) lower respiratory infection; J44.1 Chronic obstructive pulmonary disease with (acute) exacerbation; J47.0 Bronchiectasis with acute lower respiratory infection; I48.92 Unspecified atrial flutter; I11.0 Hypertensive heart disease with heart failure; M19.90 Unspecified osteoarthritis, unspecified site; I48.91 Unspecified atrial fibrillation; M47.814 Spondylosis without myelopathy or radiculopathy, thoracic region; K59.00 Constipation, unspecified; E66.9 Obesity, unspecified; E11.9 Type 2 diabetes mellitus without complications; E83.42 Hypomagnesemia; D64.9 Anemia, unspecified; G89.29 Other chronic pain; E78.5 Hyperlipidemia, unspecified; K21.9 Gastro-esophageal reflux disease without esophagitis; Z79.82 Long term (current) use of aspirin; Z79.899 Other long term (current) drug therapy; Z79.01 Long term (current) use of anticoagulants; Z82.49 Family history of ischemic heart disease and other diseases of the circulatory system; Z68.35 Body mass index [BMI] 35.0-35.9, adult
CPT/HCPCS: 71250; 74176; 74177; 82962; 83735; 84439; 84443; 86850; 86900; 86901; 86920; 87040; 87081; 87804; 93005; 93041; 93306; 93970; 94640; 96361; 96374; 97110; 97116; 97162; 97530; 99291; C9113; J0282; J1160; J1644; J1815; J1940; J1956; J2920; J3490; J7030; J7040; J7050; J7060; P9016

== ENCOUNTER 2016-06-10 13:55 | Emergency (ER) | payer OTHER ==
[~2016-06-10] VITALS: Ht 157.5 cm; Wt 83.0 kg
[~2016-06-10 13:55] MED LIST changes: +AMIO200T44 PO; -ASPI-825 PO; +BENZ-26 PO; +DIGO125T PO; +DSS100 PO; +FERG325 PO; -FERR256T PO; +GLYB5 PO; +IPRNEB IH; +LEVO750T21 PO; +MECL-111 PO; -MECL12.585 PO; -METF500T7 PO; -NAPR500T3 PO; +PANT40TA25 PO; +PRED20 PO; +SUCR1TAB22 PO
[2016-06-10 14:11] LABS: GLUCOSE,POINT OF CARE 252 MG/DL (70-110)
[2016-06-10] MEDS ORDERED: 0.9% SODIUM CHLORIDE 10 ML SYRINGE IVP PRN (15:00)
[2016-06-10 15:27] LABS: BASOPHILS % (AUTO) 0.2 % (0.0-2.0); EOSINOPHILS % (AUTO) 4.9 % (1.0-6.0); HEMATOCRIT 32.6 % (36-46); HEMOGLOBIN 10.6 g/dL (12.0-16.0); LYMPHOCYTES # (AUTO) 1.8 K/uL (1.0-4.8); LYMPHOCYTES % (AUTO) 22.8 % (22.0-44.0); MEAN CORPUSCULAR HEMOGLOBIN 30.2 pg (26.0-34.0); MEAN CORPUSCULAR HGB CONC 32.6 G/dL (31.0-37.0); MEAN CORPUSCULAR VOLUME 93 fL (80-100); MONOCYTES # (AUTO) 0.7 K/uL (0.1-1.0); MONOCYTES % (AUTO) 9.3 % (2.0-9.0); NEUTROPHILS # (AUTO) 4.8 K/uL (1.8-7.7); NEUTROPHILS % (AUTO) 62.8 % (40.0-70.0); PLATELET COUNT (AUTO) 216 K/uL (150-450); RED BLOOD CELL COUNT(AUTO) 3.53 MIL/uL (4.00-5.20); RED CELL DISTRIBUTION WIDTH 16.7 % (11.5-14.5); WHITE BLOOD COUNT (AUTO) 7.7 K/uL (4.5-11.0)
[2016-06-10 15:34] LABS: CALCIUM, TOTAL 8.6 mg/dL (8.8-10.5); CREATININE 1.67 mg/dL (0.60-1.30)
[2016-06-10 15:37] LABS: PROTHROMBIN TIME 10.8 SEC (9.4-11.6)
[2016-06-10 15:40] LABS: ALBUMIN 2.7 g/dL (3.4-5.0); BILIRUBIN,TOTAL 0.6 mg/dL (0.1-1.0); TOTAL PROTEIN, SERUM 6.7 g/dL (6.4-8.2)
[2016-06-10 15:58] LABS: LACTIC ACID 1.4 mmol/L (0.4-2.0)
[2016-06-10 17:06] LABS: APPEARANCE,URINE CLEAR (CLEAR); GLUCOSE, URINE (UA) NEGATIVE (NEGATIVE); KETONES,URINE NEGATIVE (NEGATIVE); LEUKOCYTE ESTERASE ,URINE NEGATIVE (NEGATIVE); OCCULT BLOOD,URINE NEGATIVE (NEGATIVE); PROTEIN,URINE NEGATIVE (NEGATIVE)
[2016-06-10 17:08] LABS: ADD UA MICROSCOPIC NO
[2016-06-10] MEDS ORDERED: ACETAMINOPHEN 500 MG TABLET PO ONE (17:15)
[2016-06-10 17:16] LABS: INFLUENZA TYPE B NEGATIVE FOR TYPE B (NEGATIVE)
[2016-06-10 17:36] LABS: PROCALCITONIN (PCT) 0.08 ng/mL (<0.50)
[2016-06-10 17:51] VITALS: BP 146/49
== END 2016-06-10 18:04 | disposition home or self-care (01) ==
LOC: EMS 13:59
DX: B34.9 Viral infection, unspecified (principal); E11.9 Type 2 diabetes mellitus without complications; I10 Essential (primary) hypertension
CPT/HCPCS: 82962; 83605; 84145; 87040; 87804; 93005; 99285

== ENCOUNTER 2016-06-24 18:49 | Inpatient (IN) | payer OTHER ==
[~2016-06-24] VITALS: Ht 157.5 cm; Wt 86.8 kg
[~2016-06-24 18:49] MED LIST changes: -LEVO750T21 PO
[2016-06-24] MEDS ORDERED: FURO40 PO (18:57)
[2016-06-24] MEDS ORDERED: LINA5TAB PO (18:57)
[2016-06-24] MEDS ORDERED: SLOWK8 PO (18:57)
[2016-06-24 20:02] LABS: BASOPHILS % (AUTO) 1.2 % (0.0-2.0); EOSINOPHILS % (AUTO) 4.1 % (1.0-6.0); HEMATOCRIT 36.3 % (36-46); HEMOGLOBIN 11.4 g/dL (12.0-16.0); LYMPHOCYTES % (AUTO) 26.6 % (22.0-44.0); MEAN CORPUSCULAR HEMOGLOBIN 29.2 pg (26.0-34.0); MEAN CORPUSCULAR HGB CONC 31.4 G/dL (31.0-37.0); MEAN CORPUSCULAR VOLUME 93 fL (80-100); MONOCYTES # (AUTO) 1.1 K/uL (0.1-1.0); MONOCYTES % (AUTO) 9.7 % (2.0-9.0); NEUTROPHILS # (AUTO) 6.6 K/uL (1.8-7.7); NEUTROPHILS % (AUTO) 58.4 % (40.0-70.0); PLATELET COUNT (AUTO) 321 K/uL (150-450); RED CELL DISTRIBUTION WIDTH 18.2 % (11.5-14.5); WHITE BLOOD COUNT (AUTO) 11.4 K/uL (4.5-11.0)
[2016-06-24 20:10] LABS: ANION GAP 5 mmol/L (8-16); CALCIUM, TOTAL 8.4 mg/dL (8.8-10.5); CARBON DIOXIDE 31 mmol/L (22-29); CHLORIDE 101 mmol/L (98-107); CREATININE 1.56 mg/dL (0.60-1.30); GLOMERULAR FILTR. RATE CALC 31 mL/min (>60); POTASSIUM 3.8 mmol/L (3.5-5.1); SODIUM SERUM 137 mmol/L (136-145); UREA NITROGEN, BLOOD 7 mg/dL (7-18)
[2016-06-24 20:13] LABS: INR 1.1 (0.9-1.1); PROTHROMBIN TIME 11.5 SEC (9.4-11.6)
[2016-06-24 20:20] LABS: B-TYPE NATRIURETIC PEPTIDE 147 pg/mL (0-100)
[2016-06-24] MEDS ORDERED: ONDANSETRON HCL 4 MG/2 ML VIAL IVP ONE ×2 (20:30→22:45)
[2016-06-24] MEDS ORDERED: SODIUM CHLORIDE 0.9% 250 ML IV ONE (20:30)
[2016-06-24] MEDS ORDERED: HYDROmorphone 2 MG/ML SYRINGE IVP ONE (20:30)
[2016-06-24 20:34] LABS: ALANINE AMINOTRANSFERASE 21 U/L (12-78); ALBUMIN 2.7 g/dL (3.4-5.0); ASPARTATE AMINOTRANSFERASE 27 U/L (15-37); BILIRUBIN,TOTAL 0.5 mg/dL (0.1-1.0); CREATINE KINASE MB 0.9 ng/mL (0-5); CREATINE KINASE, TOTAL 82 U/L (26-192); TOTAL PROTEIN, SERUM 6.8 g/dL (6.4-8.2)
[2016-06-24 20:37] LABS: RBC MORPHOLOGY COMMENT ABNORMAL RBC MORPH
[2016-06-24 21:57] LABS: ADD UA MICROSCOPIC NO; APPEARANCE,URINE CLEAR (CLEAR); GLUCOSE, URINE (UA) NEGATIVE (NEGATIVE); KETONES,URINE NEGATIVE (NEGATIVE); LEUKOCYTE ESTERASE ,URINE NEGATIVE (NEGATIVE); OCCULT BLOOD,URINE NEGATIVE (NEGATIVE); PROTEIN,URINE NEGATIVE (NEGATIVE)
[2016-06-24] MEDS ORDERED: ONDANSETRON HCL 4 MG/2 ML VIAL IVP PRN (22:45)
[2016-06-24] MEDS ORDERED: MORPHINE SULFATE 4 MG/ML SYRINGE IVP PRN (22:45)
[2016-06-24] MEDS ORDERED: PIPERACILLIN/TAZO 3.375 GM/D5W 50 ML IV ONE (22:45)
[2016-06-24] MEDS ORDERED: POTASSIUM CHL 20 MEQ/0.45% NS 1,000 ML IV ONE (22:45)
[2016-06-24] MEDS ORDERED: 0.9% SODIUM CHLORIDE 10 ML SYRINGE IVP PRN (22:45)
[2016-06-24 23:37] LABS: DIGOXIN 2.09 ng/mL (0.90-2.00)
[2016-06-25] MEDS ORDERED: EPINEPHrine 1:1,000 [1 MG/ML] AMP IM ONE
[2016-06-25] MEDS ORDERED: SUCCINYLCHOLINE CHLORIDE 20 MG/ML 10 ML VIAL IVP ONE
[2016-06-25] MEDS ORDERED: PROPOFOL 1% 20 ML VIAL IVP ONE
[2016-06-25] MEDS ORDERED: ONDANSETRON HCL 4 MG/2 ML VIAL IVP ONE
[2016-06-25] MEDS ORDERED: FentaNYL CITRATE-PF 100 MCG/2 ML VIAL IVP ONE
[2016-06-25] MEDS ORDERED: LIDOCAINE HCL/PF 2% 5 ML VIAL INJ ONE
[2016-06-25 00:26] VITALS: BP 141/96
[2016-06-25] MEDS ORDERED: -PHARMACY VACCINE NOTE- MISC ONE ×2 (01:45)
[2016-06-25] MEDS: PIPERACILLIN/TAZO 3.375 GM/D5W 50 ML IV SCH ×3 (02:30→16:22)
[2016-06-25 04:52] VITALS: BP 141/56
[2016-06-25 06:02] LABS: BASOPHILS % (AUTO) 0.6 % (0.0-2.0); EOSINOPHILS % (AUTO) 4.2 % (1.0-6.0); HEMATOCRIT 32.2 % (36-46); HEMOGLOBIN 10.3 g/dL (12.0-16.0); LYMPHOCYTES # (AUTO) 2.2 K/uL (1.0-4.8); LYMPHOCYTES % (AUTO) 28.6 % (22.0-44.0); MEAN CORPUSCULAR HEMOGLOBIN 29.7 pg (26.0-34.0); MEAN CORPUSCULAR HGB CONC 31.8 G/dL (31.0-37.0); MEAN CORPUSCULAR VOLUME 93 fL (80-100); MONOCYTES # (AUTO) 0.8 K/uL (0.1-1.0); MONOCYTES % (AUTO) 10.3 % (2.0-9.0); NEUTROPHILS # (AUTO) 4.3 K/uL (1.8-7.7); NEUTROPHILS % (AUTO) 56.3 % (40.0-70.0); PLATELET COUNT (AUTO) 356 K/uL (150-450); RED BLOOD CELL COUNT(AUTO) 3.45 MIL/uL (4.00-5.20); WHITE BLOOD COUNT (AUTO) 7.6 K/uL (4.5-11.0)
[2016-06-25] MEDS ORDERED: ONDANSETRON HCL 4 MG/2 ML VIAL IM PRN (06:30)
[2016-06-25] MEDS ORDERED: POTASSIUM CHL 20 MEQ/0.45% NS 1,000 ML IV SCH (06:30)
[2016-06-25] MEDS ORDERED: MORPHINE SULFATE 4 MG/ML SYRINGE IVP PRN (06:30)
[2016-06-25 07:00] LABS: RBC MORPHOLOGY COMMENT ABNORMAL RBC MORPH
[2016-06-25 07:36] LABS: ALBUMIN 2.3 g/dL (3.4-5.0); BILIRUBIN,TOTAL 0.4 mg/dL (0.1-1.0); CALCIUM, TOTAL 7.8 mg/dL (8.8-10.5); CREATININE 1.5 mg/dL (0.60-1.30); POTASSIUM 4.4 mmol/L (3.5-5.1); TOTAL PROTEIN, SERUM 5.9 g/dL (6.4-8.2)
[2016-06-25 07:40] VITALS: BP 119/63
[2016-06-25] MEDS ORDERED: 0.9% SODIUM CHLORIDE 10 ML SYRINGE IVP PRN (10:00)
[2016-06-25 11:38] VITALS: BP 138/49
[2016-06-25] MEDS: MetroNIDAZOLE 500 MG/NACL 100 ML IV SCH (13:50)
[2016-06-25 15:32] VITALS: BP 116/55
[2016-06-25] MEDS: PANTOPRAZOLE SODIUM 40 MG/VIAL IVP SCH (17:35)
[2016-06-25] MEDS ORDERED: BUPIVACAINE HCL/PF 0.5% 30 ML VIAL ONE (18:52)
[2016-06-25] MEDS ORDERED: LIDOCAINE HCL 2%/EPI 1:200,000/PF 10 ML VIAL ONE (18:52)
[2016-06-25] MEDS ORDERED: GUM MASTIC/STORAX/MSAL/ALCOHOL LIQUID 0.67 ML VIAL TP ONE (19:03)
[2016-06-25] MEDS ORDERED: HYDROmorphone 2 MG/ML SYRINGE IVP PRN ×2 (19:15→19:45)
[2016-06-25] MEDS ORDERED: FentaNYL CITRATE-PF 100 MCG/2 ML VIAL IVP PRN ×2 (19:15→19:45)
[2016-06-25] MEDS ORDERED: MEPERIDINE-PF 25 MG/ML SYRINGE IVP PRN ×2 (19:15→19:45)
[2016-06-25] MEDS ORDERED: SODIUM CHLORIDE 0.9% 1,000 ML IV ONE (19:17)
[2016-06-25] MEDS ORDERED: OXYGEN THERAPY IH SCH (20:00)
[2016-06-25] MEDS ORDERED: IBUPROFEN 600 MG TABLET PO PRN ×3 (20:30→23:57)
[2016-06-25] MEDS ORDERED: CefoTEtan DISODIUM 1 GM in DEXTROSE 5%-WATER 50 ML IV SCH (20:30)
[2016-06-25 21:47] LABS: ABG A-A DIFF O2 424.2 mmHg (10-20.0); ABG BASE EXCESS 0.1 mmol/L (-2.0-3.0); ABG HCO3 24.7 mmol/L (22.0-26.0); ABG OXYHEMOGLOBIN 98.6 % (94.0-100.0); ABG PCO2 38 mmHg (35-45); ABG PH 7.429 (7.35-7.450); TEMPERATURE, FAHRENHEIT, BG 98.5 FAHREN (96.0-98.6)
[2016-06-25 21:49] LABS: ALLEN TEST, BLOOD GAS POS
[2016-06-25] MEDS ORDERED: MORPHINE SULFATE 4 MG/ML SYRINGE IM ONE (22:00)
[2016-06-25 22:29] LABS: BASOPHILS # (AUTO) 0.04 K/uL (0.00-0.20); BASOPHILS % (AUTO) 0.3 % (0.0-2.0); EOSINOPHILS # (AUTO) 0.33 K/uL (0.00-0.70); EOSINOPHILS % (AUTO) 2.39 % (1.0-6.0); HEMATOCRIT 32.3 % (36-46); HEMOGLOBIN 10.5 g/dL (12.0-16.0); LYMPHOCYTES # (AUTO) 2.6 K/uL (1.0-4.8); LYMPHOCYTES % (AUTO) 18.7 % (22.0-44.0); MEAN CORPUSCULAR HEMOGLOBIN 30.2 pg (26.0-34.0); MEAN CORPUSCULAR HGB CONC 32.5 G/dL (31.0-37.0); MEAN CORPUSCULAR VOLUME 93 fL (80-100); MONOCYTES # (AUTO) 0.9 K/uL (0.1-1.0); MONOCYTES % (AUTO) 6.4 % (2.0-9.0); NEUTROPHILS % (AUTO) 72.2 % (40.0-70.0); PLATELET COUNT (AUTO) 367 K/uL (150-450); RED BLOOD CELL COUNT(AUTO) 3.48 MIL/uL (4.00-5.20); RED CELL DISTRIBUTION WIDTH 18.4 % (11.5-14.5); WHITE BLOOD COUNT (AUTO) 13.8 K/uL (4.5-11.0)
[2016-06-25 22:34] LABS: ANION GAP 7 mmol/L (8-16); CALCIUM, TOTAL 7.6 mg/dL (8.8-10.5); CARBON DIOXIDE 26 mmol/L (22-29); CHLORIDE 107 mmol/L (98-107); CREATININE 1.88 mg/dL (0.60-1.30); GLOMERULAR FILTR. RATE CALC 25 mL/min (>60); SODIUM SERUM 140 mmol/L (136-145); UREA NITROGEN, BLOOD 8 mg/dL (7-18)
[2016-06-25 22:58] LABS: ALANINE AMINOTRANSFERASE 23 U/L (12-78); ALBUMIN 2.2 g/dL (3.4-5.0); ASPARTATE AMINOTRANSFERASE 35 U/L (15-37); BILIRUBIN,TOTAL 0.6 mg/dL (0.1-1.0); CREATINE KINASE MB 2.6 ng/mL (0-5); CREATINE KINASE, TOTAL 101 U/L (26-192); TOTAL PROTEIN, SERUM 5.7 g/dL (6.4-8.2)
[2016-06-25 23:00] VITALS: BP 91/58
[2016-06-26] VITALS (11 sets, daily range): BP systolic 126–170; BP diastolic 33–45
[2016-06-26] MEDS ORDERED: LIDOCAINE HCL/PF 1% 5 ML VIAL ONE ×2 (00:24→00:30)
[2016-06-26] MEDS: MetroNIDAZOLE 500 MG/NACL 100 ML IV SCH ×3 (01:30→17:05)
[2016-06-26] MEDS: PIPERACILLIN/TAZO 3.375 GM/D5W 50 ML IV SCH ×4 (02:44→20:27)
[2016-06-26] MEDS: HEPARIN SODIUM,PORCINE 5,000 UNITS/ML VIAL SQ SCH ×4 (02:54→23:35)
[2016-06-26] MEDS: MORPHINE SULFATE 2 MG/ML SYRINGE IVP PRN (03:41)
[2016-06-26] MEDS ORDERED: SODIUM CHLORIDE 0.9% 250 ML IV ONE (04:53)
[2016-06-26] MEDS: PROPOFOL 1000 MG/ISO-OSM 100 ML IV PRN ×3 (05:47→19:36)
[2016-06-26 06:03] LABS: CALCIUM, TOTAL 7.6 mg/dL (8.8-10.5); CREATININE 2.06 mg/dL (0.60-1.30); MAGNESIUM 1.7 mg/dL (1.80-2.40)
[2016-06-26 07:18] LABS: BASOPHILS % (AUTO) 0.3 % (0.0-2.0); EOSINOPHILS % (AUTO) 0.3 % (1.0-6.0); HEMATOCRIT 30.5 % (36-46); HEMOGLOBIN 9.5 g/dL (12.0-16.0); LYMPHOCYTES # (AUTO) 2.2 K/uL (1.0-4.8); LYMPHOCYTES % (AUTO) 19.5 % (22.0-44.0); MEAN CORPUSCULAR HGB CONC 31.2 G/dL (31.0-37.0); MEAN CORPUSCULAR VOLUME 93 fL (80-100); MONOCYTES # (AUTO) 0.8 K/uL (0.1-1.0); MONOCYTES % (AUTO) 7.5 % (2.0-9.0); NEUTROPHILS % (AUTO) 72.4 % (40.0-70.0); PLATELET COUNT (AUTO) 354 K/uL (150-450); RED BLOOD CELL COUNT(AUTO) 3.28 MIL/uL (4.00-5.20); RED CELL DISTRIBUTION WIDTH 17.8 % (11.5-14.5); WHITE BLOOD COUNT (AUTO) 11.1 K/uL (4.5-11.0)
[2016-06-26 07:30] LABS: HEMOGLOBIN A1C 7.1 % (4.5-6.2)
[2016-06-26] MEDS: OXYGEN THERAPY IH SCH ×3 (07:45→20:27)
[2016-06-26] MEDS: PANTOPRAZOLE SODIUM 40 MG/VIAL IVP SCH (07:58)
[2016-06-26] MEDS: HYDROmorphone 2 MG/ML SYRINGE IVP PRN ×3 (08:00→20:26)
[2016-06-26 10:01] LABS: ABG HCO3 28.6 mmol/L (22.0-26.0); ABG OXYHEMOGLOBIN 97.4 % (94.0-100.0); ABG PCO2 26 mmHg (35-45); TEMPERATURE, FAHRENHEIT, BG 98.6 FAHREN (96.0-98.6)
[2016-06-26] MEDS ORDERED: MAGNESIUM SULFATE 1 GM in DEXTROSE 5%-WATER 50 ML IV ONE (10:15)
[2016-06-26] MEDS: SODIUM CHLORIDE 0.45% 1,000 ML IV SCH (10:48)
[2016-06-26 11:26] LABS: ABG A-A DIFF O2 73.3 mmHg (10-20.0); ABG BASE EXCESS 2.9 mmol/L (-2.0-3.0); ABG HCO3 26.9 mmol/L (22.0-26.0); ABG OXYHEMOGLOBIN 96.5 % (94.0-100.0); ABG PCO2 39 mmHg (35-45); ABG PH 7.451 (7.35-7.450); TEMPERATURE, FAHRENHEIT, BG 98.6 FAHREN (96.0-98.6)
[2016-06-26 11:47] LABS: RBC MORPHOLOGY COMMENT ABNORMAL RBC MORPH
[2016-06-27] VITALS (12 sets, daily range): BP systolic 136–174; BP diastolic 32–47
[2016-06-27] MEDS: MetroNIDAZOLE 500 MG/NACL 100 ML IV SCH ×3 (00:52→16:10)
[2016-06-27] MEDS ORDERED: SODIUM CHLORIDE 0.9% 500 ML IV ONE (00:57)
[2016-06-27] MEDS ORDERED: SODIUM CHLORIDE 0.9% 250 ML IV ONE ×2 (00:57→21:08)
[2016-06-27] MEDS: PIPERACILLIN/TAZO 3.375 GM/D5W 50 ML IV SCH ×4 (02:52→20:11)
[2016-06-27] MEDS: PROPOFOL 1000 MG/ISO-OSM 100 ML IV PRN (03:10)
[2016-06-27 06:24] LABS: CALCIUM, TOTAL 7.4 mg/dL (8.8-10.5); CREATININE 2.2 mg/dL (0.60-1.30); POTASSIUM 3.4 mmol/L (3.5-5.1)
[2016-06-27] MEDS: SODIUM CHLORIDE 0.45% 1,000 ML IV SCH (06:30)
[2016-06-27 06:59] LABS: BASOPHILS % (AUTO) 0.6 % (0.0-2.0); EOSINOPHILS % (AUTO) 4.6 % (1.0-6.0); HEMOGLOBIN 9.8 g/dL (12.0-16.0); LYMPHOCYTES # (AUTO) 1.7 K/uL (1.0-4.8); LYMPHOCYTES % (AUTO) 19.4 % (22.0-44.0); MEAN CORPUSCULAR HEMOGLOBIN 29.7 pg (26.0-34.0); MEAN CORPUSCULAR HGB CONC 31.7 G/dL (31.0-37.0); MEAN CORPUSCULAR VOLUME 94 fL (80-100); MONOCYTES % (AUTO) 11.3 % (2.0-9.0); NEUTROPHILS # (AUTO) 5.6 K/uL (1.8-7.7); NEUTROPHILS % (AUTO) 64.1 % (40.0-70.0); PLATELET COUNT (AUTO) 298 K/uL (150-450); RED BLOOD CELL COUNT(AUTO) 3.31 MIL/uL (4.00-5.20); RED CELL DISTRIBUTION WIDTH 18.9 % (11.5-14.5); WHITE BLOOD COUNT (AUTO) 8.8 K/uL (4.5-11.0)
[2016-06-27] MEDS: PANTOPRAZOLE SODIUM 40 MG/VIAL IVP SCH (09:19)
[2016-06-27] MEDS: HEPARIN SODIUM,PORCINE 5,000 UNITS/ML VIAL SQ SCH ×2 (09:19→16:09)
[2016-06-27] MEDS: OXYGEN THERAPY IH SCH (09:19)
[2016-06-27 09:29] LABS: RBC MORPHOLOGY COMMENT ABNORMAL RBC MORPH
[2016-06-27] MEDS: MORPHINE SULFATE 2 MG/ML SYRINGE IVP PRN ×2 (10:29→13:37)
[2016-06-27] MEDS: HydrALAZINE HCL 20 MG/ML VIAL IVP PRN (11:31)
[2016-06-27 12:37] LABS: ABG A-A DIFF O2 88.2 mmHg (10-20.0); ABG BASE EXCESS 1.2 mmol/L (-2.0-3.0); ABG HCO3 25.4 mmol/L (22.0-26.0); ABG OXYHEMOGLOBIN 94.4 % (94.0-100.0); ABG PCO2 41 mmHg (35-45); ABG PH 7.412 (7.35-7.450); TEMPERATURE, FAHRENHEIT, BG 98.6 FAHREN (96.0-98.6)
[2016-06-27 15:09] LABS: CREATINE KINASE MB 0.8 ng/mL (0-5); CREATINE KINASE, TOTAL 165 U/L (26-192)
[2016-06-27] MEDS: HYDROmorphone 2 MG/ML SYRINGE IVP PRN ×2 (16:10→20:10)
[2016-06-27] MEDS ORDERED: PROPOFOL 1000 MG/ISO-OSM 100 ML IV ONE (18:25)
[2016-06-27] MEDS ORDERED: MORPHINE SULFATE 4 MG/ML SYRINGE ONE (18:25)
[2016-06-27] MEDS ORDERED: LIDOCAINE HCL/PF 1% 5 ML VIAL ONE (18:25)
[2016-06-28] VITALS (7 sets, daily range): BP systolic 123–176; BP diastolic 36–56
[2016-06-28] MEDS: HEPARIN SODIUM,PORCINE 5,000 UNITS/ML VIAL SQ SCH ×4 (01:19→23:10)
[2016-06-28] MEDS: PIPERACILLIN/TAZO 3.375 GM/D5W 50 ML IV SCH ×4 (01:19→21:30)
[2016-06-28] MEDS: MetroNIDAZOLE 500 MG/NACL 100 ML IV SCH ×3 (01:19→16:29)
[2016-06-28] MEDS: HydrALAZINE HCL 20 MG/ML VIAL IVP PRN ×2 (02:44→03:03)
[2016-06-28] MEDS ORDERED: SODIUM CHLORIDE 0.9% 0 ML IV ONE (03:20)
[2016-06-28] MEDS: SODIUM CHLORIDE 0.45% 1,000 ML IV SCH ×2 (03:24→21:30)
[2016-06-28 06:08] LABS: BASOPHILS % (AUTO) 0.5 % (0.0-2.0); HEMATOCRIT 33.5 % (36-46); HEMOGLOBIN 10.6 g/dL (12.0-16.0); LYMPHOCYTES # (AUTO) 2.2 K/uL (1.0-4.8); LYMPHOCYTES % (AUTO) 20.9 % (22.0-44.0); MEAN CORPUSCULAR HEMOGLOBIN 29.8 pg (26.0-34.0); MEAN CORPUSCULAR HGB CONC 31.6 G/dL (31.0-37.0); MEAN CORPUSCULAR VOLUME 94 fL (80-100); MONOCYTES # (AUTO) 0.9 K/uL (0.1-1.0); MONOCYTES % (AUTO) 8.9 % (2.0-9.0); NEUTROPHILS # (AUTO) 6.9 K/uL (1.8-7.7); NEUTROPHILS % (AUTO) 66.7 % (40.0-70.0); PLATELET COUNT (AUTO) 313 K/uL (150-450); RED BLOOD CELL COUNT(AUTO) 3.55 MIL/uL (4.00-5.20); RED CELL DISTRIBUTION WIDTH 18.5 % (11.5-14.5); WHITE BLOOD COUNT (AUTO) 10.4 K/uL (4.5-11.0)
[2016-06-28 06:15] LABS: BILIRUBIN,TOTAL 0.7 mg/dL (0.1-1.0); CALCIUM, TOTAL 7.6 mg/dL (8.8-10.5); CREATININE 1.68 mg/dL (0.60-1.30); MAGNESIUM 1.8 mg/dL (1.80-2.40); PHOSPHORUS 3.4 mg/dL (2.5-4.9); POTASSIUM 3.4 mmol/L (3.5-5.1); TOTAL PROTEIN, SERUM 6.1 g/dL (6.4-8.2)
[2016-06-28] MEDS: HYDROCODONE/ACETAMINOPHEN 5-325 MG TABLET PO PRN (08:00)
[2016-06-28] MEDS: PANTOPRAZOLE SODIUM 40 MG/VIAL IVP SCH (08:01)
[2016-06-28] MEDS: OXYGEN THERAPY IH SCH ×3 (08:27→21:29)
[2016-06-28] MEDS: HYDROmorphone 2 MG/ML SYRINGE IVP PRN ×2 (08:27→21:30)
[2016-06-28] MEDS: PROMETHAZINE HCL/CODEINE 6.25-10MG/5ML SYRUP UDCUP PO PRN (21:35)
[2016-06-28] MEDS: MORPHINE SULFATE 2 MG/ML SYRINGE IVP PRN (23:10)
[2016-06-29] VITALS: BP 135/53
[2016-06-29] MEDS: MetroNIDAZOLE 500 MG/NACL 100 ML IV SCH ×3 (00:31→16:47)
[2016-06-29] MEDS: PIPERACILLIN/TAZO 3.375 GM/D5W 50 ML IV SCH ×4 (03:11→20:30)
[2016-06-29 04:00] VITALS: BP 123/50
[2016-06-29 06:21] LABS: BASOPHILS % (AUTO) 0.6 % (0.0-2.0); EOSINOPHILS % (AUTO) 6.3 % (1.0-6.0); HEMATOCRIT 28.7 % (36-46); HEMOGLOBIN 8.9 g/dL (12.0-16.0); LYMPHOCYTES # (AUTO) 1.9 K/uL (1.0-4.8); LYMPHOCYTES % (AUTO) 26.1 % (22.0-44.0); MEAN CORPUSCULAR HEMOGLOBIN 29.5 pg (26.0-34.0); MEAN CORPUSCULAR HGB CONC 31.1 G/dL (31.0-37.0); MEAN CORPUSCULAR VOLUME 95 fL (80-100); MONOCYTES # (AUTO) 0.7 K/uL (0.1-1.0); MONOCYTES % (AUTO) 9.8 % (2.0-9.0); NEUTROPHILS # (AUTO) 4.2 K/uL (1.8-7.7); NEUTROPHILS % (AUTO) 57.2 % (40.0-70.0); PLATELET COUNT (AUTO) 263 K/uL (150-450); RED BLOOD CELL COUNT(AUTO) 3.02 MIL/uL (4.00-5.20); RED CELL DISTRIBUTION WIDTH 18.9 % (11.5-14.5); WHITE BLOOD COUNT (AUTO) 7.3 K/uL (4.5-11.0)
[2016-06-29 06:51] LABS: CALCIUM, TOTAL 7.4 mg/dL (8.8-10.5); CREATININE 1.35 mg/dL (0.60-1.30); PHOSPHORUS 2.6 mg/dL (2.5-4.9); POTASSIUM 3.1 mmol/L (3.5-5.1)
[2016-06-29 08:00] VITALS: BP 118/46
[2016-06-29] MEDS: OXYGEN THERAPY IH SCH (08:18)
[2016-06-29] MEDS: PANTOPRAZOLE SODIUM 40 MG/VIAL IVP SCH (08:19)
[2016-06-29] MEDS: HEPARIN SODIUM,PORCINE 5,000 UNITS/ML VIAL SQ SCH ×3 (08:19→23:51)
[2016-06-29 10:25] LABS: RBC MORPHOLOGY COMMENT ABNORMAL RBC MORPH
[2016-06-29] MEDS: MORPHINE SULFATE 2 MG/ML SYRINGE IVP PRN ×4 (10:45→23:04)
[2016-06-29] MEDS: HYDROCODONE/ACETAMINOPHEN 5-325 MG TABLET PO PRN (10:46)
[2016-06-29 12:00] VITALS: BP 138/54
[2016-06-29] MEDS ORDERED: POTASSIUM CHLORIDE 20 MEQ ER TABLET PO ONE (14:30)
[2016-06-29 16:00] VITALS: BP 124/58
[2016-06-29] MEDS: SODIUM CHLORIDE 0.45% 1,000 ML IV SCH ×2 (16:48→23:51)
[2016-06-29 19:21] VITALS: BP 136/85
[2016-06-29] MEDS ORDERED: SODIUM CHLORIDE 0.9% 250 ML IV ONE (20:24)
[2016-06-29] MEDS: PROMETHAZINE HCL/CODEINE 6.25-10MG/5ML SYRUP UDCUP PO PRN (22:40)
[2016-06-30] VITALS (7 sets, daily range): BP systolic 121–148; BP diastolic 56–72
[2016-06-30] MEDS: PIPERACILLIN/TAZO 3.375 GM/D5W 50 ML IV SCH ×4 (01:16→20:25)
[2016-06-30] MEDS: MetroNIDAZOLE 500 MG/NACL 100 ML IV SCH ×3 (01:16→17:53)
[2016-06-30] MEDS: HEPARIN SODIUM,PORCINE 5,000 UNITS/ML VIAL SQ SCH ×2 (07:43→16:00)
[2016-06-30] MEDS: OXYGEN THERAPY IH SCH ×2 (07:44→20:24)
[2016-06-30] MEDS: PANTOPRAZOLE SODIUM 40 MG/VIAL IVP SCH (08:55)
[2016-06-30 09:25] LABS: CALCIUM, TOTAL 7.4 mg/dL (8.8-10.5); CREATININE 1.21 mg/dL (0.60-1.30); MAGNESIUM 1.7 mg/dL (1.80-2.40); POTASSIUM 3.9 mmol/L (3.5-5.1)
[2016-06-30] MEDS: MORPHINE SULFATE 2 MG/ML SYRINGE IVP PRN (12:50)
[2016-06-30] MEDS ORDERED: MAGNESIUM SULFATE 2 GM in DEXTROSE 5%-WATER 50 ML IV ONE (14:30)
[2016-06-30] MEDS: GuaiFENesin/D-METHORPHAN/PHENYLEPH 5 ML LIQUID ORAL.SYG PO SCH ×2 (15:20→20:25)
[2016-06-30] MEDS: HYDROCODONE/ACETAMINOPHEN 5-325 MG TABLET PO PRN (15:32)
[2016-07-01] MEDS: GuaiFENesin/D-METHORPHAN/PHENYLEPH 5 ML LIQUID ORAL.SYG PO SCH ×6 (00:03→20:14)
[2016-07-01] MEDS: HEPARIN SODIUM,PORCINE 5,000 UNITS/ML VIAL SQ SCH ×3 (00:03→15:50)
[2016-07-01] MEDS: MetroNIDAZOLE 500 MG/NACL 100 ML IV SCH ×3 (00:03→17:15)
[2016-07-01] MEDS: PIPERACILLIN/TAZO 3.375 GM/D5W 50 ML IV SCH ×4 (01:41→20:14)
[2016-07-01] MEDS: SODIUM CHLORIDE 0.45% 1,000 ML IV SCH (04:51)
[2016-07-01 05:06] VITALS: BP 146/60
[2016-07-01] MEDS: PROMETHAZINE HCL/CODEINE 6.25-10MG/5ML SYRUP UDCUP PO PRN (05:09)
[2016-07-01] MEDS ORDERED: SODIUM CHLORIDE 0.9% IRRIG BTL 1,000 ML IRRIG ONE (05:47)
[2016-07-01 07:15] VITALS: BP 137/58
[2016-07-01] MEDS: MORPHINE SULFATE 2 MG/ML SYRINGE IVP PRN ×2 (08:23→12:51)
[2016-07-01] MEDS: PANTOPRAZOLE SODIUM 40 MG/VIAL IVP SCH (08:23)
[2016-07-01] MEDS: OXYGEN THERAPY IH SCH ×2 (08:23→20:25)
[2016-07-01] MEDS: MULTIVITAMINS, THERAPEUTIC TABLET PO SCH (08:24)
[2016-07-01 11:19] VITALS: BP 135/56
[2016-07-01 15:42] VITALS: BP 151/83
[2016-07-01 21:12] VITALS: BP 155/58
[2016-07-02] VITALS (7 sets, daily range): BP systolic 130–148; BP diastolic 55–61
[2016-07-02] MEDS: HEPARIN SODIUM,PORCINE 5,000 UNITS/ML VIAL SQ SCH ×4 (00:57→23:33)
[2016-07-02] MEDS: MetroNIDAZOLE 500 MG/NACL 100 ML IV SCH ×4 (00:57→23:33)
[2016-07-02] MEDS: PIPERACILLIN/TAZO 3.375 GM/D5W 50 ML IV SCH ×5 (00:58→23:33)
[2016-07-02] MEDS: GuaiFENesin/D-METHORPHAN/PHENYLEPH 5 ML LIQUID ORAL.SYG PO SCH ×7 (01:12→23:33)
[2016-07-02] MEDS: SODIUM CHLORIDE 0.45% 1,000 ML IV SCH (06:18)
[2016-07-02 07:29] LABS: BASOPHILS % (AUTO) 0.6 % (0.0-2.0); EOSINOPHILS % (AUTO) 8.6 % (1.0-6.0); HEMATOCRIT 30.6 % (36-46); HEMOGLOBIN 9.7 g/dL (12.0-16.0); LYMPHOCYTES # (AUTO) 2.1 K/uL (1.0-4.8); LYMPHOCYTES % (AUTO) 30.6 % (22.0-44.0); MEAN CORPUSCULAR HEMOGLOBIN 29.6 pg (26.0-34.0); MEAN CORPUSCULAR HGB CONC 31.7 G/dL (31.0-37.0); MEAN CORPUSCULAR VOLUME 94 fL (80-100); MONOCYTES # (AUTO) 0.7 K/uL (0.1-1.0); NEUTROPHILS # (AUTO) 3.4 K/uL (1.8-7.7); NEUTROPHILS % (AUTO) 50.2 % (40.0-70.0); PLATELET COUNT (AUTO) 277 K/uL (150-450); RED BLOOD CELL COUNT(AUTO) 3.28 MIL/uL (4.00-5.20); RED CELL DISTRIBUTION WIDTH 18.5 % (11.5-14.5); WHITE BLOOD COUNT (AUTO) 6.7 K/uL (4.5-11.0)
[2016-07-02 07:30] LABS: RBC MORPHOLOGY COMMENT ABNORMAL RBC MORPH
[2016-07-02 07:51] LABS: ALBUMIN 1.7 g/dL (3.4-5.0); BILIRUBIN,TOTAL 0.3 mg/dL (0.1-1.0); CALCIUM, TOTAL 8.1 mg/dL (8.8-10.5); CREATININE 0.92 mg/dL (0.60-1.30); MAGNESIUM 1.8 mg/dL (1.80-2.40); POTASSIUM 3.7 mmol/L (3.5-5.1); TOTAL PROTEIN, SERUM 5.7 g/dL (6.4-8.2)
[2016-07-02] MEDS: MULTIVITAMINS, THERAPEUTIC TABLET PO SCH (08:10)
[2016-07-02] MEDS: PANTOPRAZOLE SODIUM 40 MG/VIAL IVP SCH (08:10)
[2016-07-02] MEDS: MORPHINE SULFATE 2 MG/ML SYRINGE IVP PRN ×2 (08:10→12:59)
[2016-07-02] MEDS: OXYGEN THERAPY IH SCH ×2 (08:11→20:38)
[2016-07-02] MEDS: IPRATROPIUM BROMIDE 0.5 MG/2.5 ML NEB SOLUTION NEB PRN (16:27)
[2016-07-02] MEDS: ALBUTEROL SULFATE 2.5 MG/0.5 ML NEB SOLUTION NEB PRN (16:27)
[2016-07-03] MEDS: GuaiFENesin/D-METHORPHAN/PHENYLEPH 5 ML LIQUID ORAL.SYG PO SCH ×5 (03:48→20:28)
[2016-07-03 04:37] VITALS: BP 133/66
[2016-07-03] MEDS: SODIUM CHLORIDE 0.45% 1,000 ML IV SCH (05:53)
[2016-07-03 07:36] VITALS: BP 142/59
[2016-07-03] MEDS: PIPERACILLIN/TAZO 3.375 GM/D5W 50 ML IV SCH ×3 (07:37→20:28)
[2016-07-03] MEDS: MetroNIDAZOLE 500 MG/NACL 100 ML IV SCH ×2 (08:35→15:55)
[2016-07-03] MEDS: HEPARIN SODIUM,PORCINE 5,000 UNITS/ML VIAL SQ SCH ×2 (08:35→15:21)
[2016-07-03] MEDS: MULTIVITAMINS, THERAPEUTIC TABLET PO SCH (08:35)
[2016-07-03] MEDS: PANTOPRAZOLE SODIUM 40 MG/VIAL IVP SCH (08:35)
[2016-07-03] MEDS: OXYGEN THERAPY IH SCH ×2 (08:36→20:28)
[2016-07-03 11:07] VITALS: BP 133/56
[2016-07-03 15:33] VITALS: BP 157/61
[2016-07-03 20:36] VITALS: BP 152/57
[2016-07-03] MEDS: IPRATROPIUM BROMIDE 0.5 MG/2.5 ML NEB SOLUTION NEB PRN (20:54)
[2016-07-03] MEDS: ALBUTEROL SULFATE 2.5 MG/0.5 ML NEB SOLUTION NEB PRN (20:54)
[2016-07-03] MEDS: HYDROCODONE/ACETAMINOPHEN 5-325 MG TABLET PO PRN (21:12)
[2016-07-03 23:24] VITALS: BP 148/59
[2016-07-04] MEDS: GuaiFENesin/D-METHORPHAN/PHENYLEPH 5 ML LIQUID ORAL.SYG PO SCH ×6 (01:46→20:22)
[2016-07-04] MEDS: HEPARIN SODIUM,PORCINE 5,000 UNITS/ML VIAL SQ SCH ×3 (01:46→15:15)
[2016-07-04] MEDS: SODIUM CHLORIDE 0.45% 1,000 ML IV SCH (01:46)
[2016-07-04] MEDS: MetroNIDAZOLE 500 MG/NACL 100 ML IV SCH ×3 (01:47→16:32)
[2016-07-04] MEDS: PIPERACILLIN/TAZO 3.375 GM/D5W 50 ML IV SCH ×4 (03:36→20:22)
[2016-07-04 04:09] VITALS: BP 138/65
[2016-07-04 05:55] LABS: BASOPHILS % (AUTO) 1.1 % (0.0-2.0); HEMATOCRIT 29.2 % (36-46); HEMOGLOBIN 9.1 g/dL (12.0-16.0); LYMPHOCYTES # (AUTO) 2.3 K/uL (1.0-4.8); LYMPHOCYTES % (AUTO) 33.4 % (22.0-44.0); MEAN CORPUSCULAR HEMOGLOBIN 29.1 pg (26.0-34.0); MEAN CORPUSCULAR VOLUME 94 fL (80-100); MONOCYTES # (AUTO) 0.7 K/uL (0.1-1.0); MONOCYTES % (AUTO) 10.5 % (2.0-9.0); NEUTROPHILS # (AUTO) 3.4 K/uL (1.8-7.7); PLATELET COUNT (AUTO) 296 K/uL (150-450); RED BLOOD CELL COUNT(AUTO) 3.12 MIL/uL (4.00-5.20); RED CELL DISTRIBUTION WIDTH 18.7 % (11.5-14.5); WHITE BLOOD COUNT (AUTO) 6.9 K/uL (4.5-11.0)
[2016-07-04 06:05] LABS: ALBUMIN 1.7 g/dL (3.4-5.0); ANION GAP 7 mmol/L (8-16); ASPARTATE AMINOTRANSFERASE 14 U/L (15-37); BILIRUBIN,TOTAL 0.2 mg/dL (0.1-1.0); CARBON DIOXIDE 27 mmol/L (22-29); CHLORIDE 109 mmol/L (98-107); CREATININE 0.88 mg/dL (0.60-1.30); GLOMERULAR FILTR. RATE CALC > 60 mL/min (>60); POTASSIUM 3.4 mmol/L (3.5-5.1); SODIUM SERUM 143 mmol/L (136-145); TOTAL PROTEIN, SERUM 5.3 g/dL (6.4-8.2); UREA NITROGEN, BLOOD 7 mg/dL (7-18)
[2016-07-04 07:21] VITALS: BP 146/69
[2016-07-04 07:21] LABS: ALANINE AMINOTRANSFERASE 7 U/L (12-78)
[2016-07-04 07:53] LABS: RBC MORPHOLOGY COMMENT ABNORMAL RBC MORPH
[2016-07-04] MEDS: OXYGEN THERAPY IH SCH ×2 (08:56→20:27)
[2016-07-04] MEDS: MULTIVITAMINS, THERAPEUTIC TABLET PO SCH (08:58)
[2016-07-04] MEDS: PANTOPRAZOLE SODIUM 40 MG/VIAL IVP SCH (08:58)
[2016-07-04] MEDS: ALBUTEROL SULFATE 2.5 MG/0.5 ML NEB SOLUTION NEB PRN ×2 (09:34→16:01)
[2016-07-04] MEDS: IPRATROPIUM BROMIDE 0.5 MG/2.5 ML NEB SOLUTION NEB PRN ×2 (09:34→16:01)
[2016-07-04 10:43] VITALS: BP 117/48
[2016-07-04] MEDS ORDERED: GUAIFCF5L PO (11:33)
[2016-07-04] MEDS ORDERED: HEPA500017 SQ (11:34)
[2016-07-04] MEDS ORDERED: METR500IV IV (11:35)
[2016-07-04] MEDS ORDERED: MV-M1TAB2 PO (11:35)
[2016-07-04] MEDS ORDERED: PANT40I IV (11:35)
[2016-07-04] MEDS ORDERED: PIPE3.379 IV (11:36)
[2016-07-04] MEDS ORDERED: AUD NEB (11:38)
[2016-07-04] MEDS ORDERED: 45NS1000 IV (11:38)
[2016-07-04] MEDS ORDERED: HYDR-309 PO (11:39)
[2016-07-04] MEDS ORDERED: [UNRECOGNIZED DRUG - CODE] IV (11:41)
[2016-07-04] MEDS ORDERED: IPRNEB IH (11:42)
[2016-07-04] MEDS ORDERED: HYDR20I IV (11:42)
[2016-07-04] MEDS ORDERED: ONDA4 IM (11:44)
[2016-07-04] MEDS ORDERED: MORP2CAR IV (11:44)
[2016-07-04] MEDS ORDERED: PROMVCC5L PO (11:45)
[2016-07-04] MEDS ORDERED: POTASSIUM CHLORIDE 20 MEQ ER TABLET PO ONE (13:15)
[2016-07-04] MEDS ORDERED: MAGNESIUM SULFATE 2 GM in DEXTROSE 5%-WATER 50 ML IV ONE (13:15)
[2016-07-04 15:55] VITALS: BP 125/53
[2016-07-04 19:32] VITALS: BP 128/57
[2016-07-05] VITALS (8 sets, daily range): BP systolic 123–145; BP diastolic 59–77
[2016-07-05] MEDS: GuaiFENesin/D-METHORPHAN/PHENYLEPH 5 ML LIQUID ORAL.SYG PO SCH ×7 (00:40→23:58)
[2016-07-05] MEDS: HEPARIN SODIUM,PORCINE 5,000 UNITS/ML VIAL SQ SCH ×4 (00:40→23:58)
[2016-07-05] MEDS: MetroNIDAZOLE 500 MG/NACL 100 ML IV SCH ×3 (00:48→17:00)
[2016-07-05] MEDS: PIPERACILLIN/TAZO 3.375 GM/D5W 50 ML IV SCH ×4 (01:57→20:51)
[2016-07-05] MEDS: SODIUM CHLORIDE 0.45% 1,000 ML IV SCH ×2 (01:57→13:44)
[2016-07-05] MEDS: HYDROCODONE/ACETAMINOPHEN 5-325 MG TABLET PO PRN (05:55)
[2016-07-05 07:27] LABS: ALANINE AMINOTRANSFERASE 7 U/L (12-78); ALBUMIN 1.7 g/dL (3.4-5.0); ANION GAP 8 mmol/L (8-16); ASPARTATE AMINOTRANSFERASE 14 U/L (15-37); BILIRUBIN,TOTAL 0.3 mg/dL (0.1-1.0); CALCIUM, TOTAL 8.1 mg/dL (8.8-10.5); CARBON DIOXIDE 26 mmol/L (22-29); CHLORIDE 109 mmol/L (98-107); CREATININE 0.79 mg/dL (0.60-1.30); GLOMERULAR FILTR. RATE CALC > 60 mL/min (>60); POTASSIUM 3.7 mmol/L (3.5-5.1); SODIUM SERUM 143 mmol/L (136-145); TOTAL PROTEIN, SERUM 5.8 g/dL (6.4-8.2); UREA NITROGEN, BLOOD 6 mg/dL (7-18)
[2016-07-05 08:13] LABS: BASOPHILS # (AUTO) 0.04 K/uL (0.00-0.20); BASOPHILS % (AUTO) 0.6 % (0.0-2.0); EOSINOPHILS % (AUTO) 6.27 % (1.0-6.0); HEMATOCRIT 31.1 % (36-46); LYMPHOCYTES % (AUTO) 31.6 % (22.0-44.0); MEAN CORPUSCULAR HEMOGLOBIN 29.8 pg (26.0-34.0); MEAN CORPUSCULAR HGB CONC 32.1 G/dL (31.0-37.0); MEAN CORPUSCULAR VOLUME 93 fL (80-100); MONOCYTES # (AUTO) 0.6 K/uL (0.1-1.0); MONOCYTES % (AUTO) 9.2 % (2.0-9.0); NEUTROPHILS # (AUTO) 3.3 K/uL (1.8-7.7); NEUTROPHILS % (AUTO) 52.3 % (40.0-70.0); PLATELET COUNT (AUTO) 316 K/uL (150-450); RED BLOOD CELL COUNT(AUTO) 3.36 MIL/uL (4.00-5.20); RED CELL DISTRIBUTION WIDTH 19.6 % (11.5-14.5); WHITE BLOOD COUNT (AUTO) 6.4 K/uL (4.5-11.0)
[2016-07-05] MEDS: OXYGEN THERAPY IH SCH (08:48)
[2016-07-05] MEDS: PANTOPRAZOLE SODIUM 40 MG/VIAL IVP SCH (08:49)
[2016-07-05] MEDS: MULTIVITAMINS, THERAPEUTIC TABLET PO SCH (08:50)
[2016-07-05] MEDS: AMIODARONE HCL 200 MG TABLET PO SCH ×2 (08:50→20:51)
[2016-07-05 08:56] LABS: B-TYPE NATRIURETIC PEPTIDE 157 pg/mL (0-100)
[2016-07-05 09:49] LABS: RBC MORPHOLOGY COMMENT ABNORMAL RBC MORPH
[2016-07-05] MEDS: MORPHINE SULFATE 2 MG/ML SYRINGE IVP PRN (10:31)
[2016-07-05] MEDS: IPRATROPIUM BROMIDE 0.5 MG/2.5 ML NEB SOLUTION NEB PRN (13:27)
[2016-07-05] MEDS: BENZONATATE 100 MG CAPSULE PO SCH (20:51)
[2016-07-06] MEDS: MetroNIDAZOLE 500 MG/NACL 100 ML IV SCH ×4 (01:17→23:31)
[2016-07-06] MEDS: PROMETHAZINE HCL/CODEINE 6.25-10MG/5ML SYRUP UDCUP PO PRN (01:22)
[2016-07-06] MEDS: PIPERACILLIN/TAZO 3.375 GM/D5W 50 ML IV SCH ×4 (02:48→19:42)
[2016-07-06] MEDS: GuaiFENesin/D-METHORPHAN/PHENYLEPH 5 ML LIQUID ORAL.SYG PO SCH ×6 (04:09→23:31)
[2016-07-06 04:20] VITALS: BP 138/69
[2016-07-06 06:34] LABS: BASOPHILS % (AUTO) 0.7 % (0.0-2.0); HEMATOCRIT 32.5 % (36-46); HEMOGLOBIN 10.2 g/dL (12.0-16.0); LYMPHOCYTES # (AUTO) 2.5 K/uL (1.0-4.8); LYMPHOCYTES % (AUTO) 35.4 % (22.0-44.0); MEAN CORPUSCULAR HEMOGLOBIN 29.5 pg (26.0-34.0); MEAN CORPUSCULAR HGB CONC 31.5 G/dL (31.0-37.0); MEAN CORPUSCULAR VOLUME 94 fL (80-100); MONOCYTES # (AUTO) 0.7 K/uL (0.1-1.0); MONOCYTES % (AUTO) 9.2 % (2.0-9.0); NEUTROPHILS # (AUTO) 3.5 K/uL (1.8-7.7); NEUTROPHILS % (AUTO) 49.7 % (40.0-70.0); PLATELET COUNT (AUTO) 343 K/uL (150-450); RED BLOOD CELL COUNT(AUTO) 3.47 MIL/uL (4.00-5.20); WHITE BLOOD COUNT (AUTO) 7.1 K/uL (4.5-11.0)
[2016-07-06 06:50] LABS: ALANINE AMINOTRANSFERASE 7 U/L (12-78); ALBUMIN 1.7 g/dL (3.4-5.0); ANION GAP 7 mmol/L (8-16); ASPARTATE AMINOTRANSFERASE 14 U/L (15-37); BILIRUBIN,TOTAL 0.3 mg/dL (0.1-1.0); CARBON DIOXIDE 27 mmol/L (22-29); CHLORIDE 108 mmol/L (98-107); CREATININE 0.78 mg/dL (0.60-1.30); GLOMERULAR FILTR. RATE CALC > 60 mL/min (>60); POTASSIUM 3.2 mmol/L (3.5-5.1); SODIUM SERUM 142 mmol/L (136-145); TOTAL PROTEIN, SERUM 5.6 g/dL (6.4-8.2); UREA NITROGEN, BLOOD 6 mg/dL (7-18)
[2016-07-06 07:15] VITALS: BP 133/70
[2016-07-06] MEDS: MULTIVITAMINS, THERAPEUTIC TABLET PO SCH (09:10)
[2016-07-06] MEDS: PANTOPRAZOLE SODIUM 40 MG/VIAL IVP SCH (09:10)
[2016-07-06] MEDS: HEPARIN SODIUM,PORCINE 5,000 UNITS/ML VIAL SQ SCH ×3 (09:10→23:31)
[2016-07-06] MEDS: AMIODARONE HCL 200 MG TABLET PO SCH ×2 (09:10→19:39)
[2016-07-06] MEDS: BENZONATATE 100 MG CAPSULE PO SCH ×3 (09:10→19:42)
[2016-07-06] MEDS: SODIUM CHLORIDE 0.45% 1,000 ML IV SCH (09:11)
[2016-07-06] MEDS ORDERED: POTASSIUM CHLORIDE 20 MEQ ER TABLET PO PRN (09:30)
[2016-07-06] MEDS ORDERED: POTASSIUM CHL 10 MEQ/WATER 50 ML IV PRN (09:30)
[2016-07-06] MEDS: POTASSIUM CHLORIDE 20 MEQ ER TABLET PO PRN (10:38)
[2016-07-06 11:16] VITALS: BP 129/68
[2016-07-06 15:42] VITALS: BP 125/62
[2016-07-06] MEDS ORDERED: SODIUM CHLORIDE 0.9% 250 ML IV ONE (19:38)
[2016-07-06] MEDS: HYDROCODONE/ACETAMINOPHEN 5-325 MG TABLET PO PRN (19:42)
[2016-07-06 20:00] VITALS: BP 125/79
[2016-07-06] MEDS: MAGNESIUM OXIDE 400 MG TABLET PO PRN (20:25)
[2016-07-06] MEDS ORDERED: MAGNESIUM SULFATE 4 GM/WATER 100 ML IV PRN (20:30)
[2016-07-06] MEDS ORDERED: MAGNESIUM SULFATE 2 GM in DEXTROSE 5%-WATER 50 ML IV PRN (20:30)
[2016-07-06 23:55] VITALS: BP 116/72
[2016-07-07] MEDS: PIPERACILLIN/TAZO 3.375 GM/D5W 50 ML IV SCH ×4 (00:34→21:06)
[2016-07-07] MEDS: HYDROCODONE/ACETAMINOPHEN 5-325 MG TABLET PO PRN (00:34)
[2016-07-07 04:09] VITALS: BP 131/68
[2016-07-07] MEDS: SODIUM CHLORIDE 0.45% 1,000 ML IV SCH (05:05)
[2016-07-07] MEDS: GuaiFENesin/D-METHORPHAN/PHENYLEPH 5 ML LIQUID ORAL.SYG PO SCH ×6 (05:06→23:47)
[2016-07-07 07:11] LABS: BASOPHILS # (AUTO) 0.04 K/uL (0.00-0.20); BASOPHILS % (AUTO) 0.6 % (0.0-2.0); EOSINOPHILS # (AUTO) 0.29 K/uL (0.00-0.70); EOSINOPHILS % (AUTO) 4.62 % (1.0-6.0); HEMATOCRIT 32.8 % (36-46); HEMOGLOBIN 10.7 g/dL (12.0-16.0); LYMPHOCYTES # (AUTO) 2.3 K/uL (1.0-4.8); LYMPHOCYTES % (AUTO) 36.7 % (22.0-44.0); MEAN CORPUSCULAR HEMOGLOBIN 30.2 pg (26.0-34.0); MEAN CORPUSCULAR HGB CONC 32.5 G/dL (31.0-37.0); MEAN CORPUSCULAR VOLUME 93 fL (80-100); MONOCYTES # (AUTO) 0.6 K/uL (0.1-1.0); PLATELET COUNT (AUTO) 350 K/uL (150-450); RED BLOOD CELL COUNT(AUTO) 3.53 MIL/uL (4.00-5.20); RED CELL DISTRIBUTION WIDTH 19.2 % (11.5-14.5); WHITE BLOOD COUNT (AUTO) 6.2 K/uL (4.5-11.0)
[2016-07-07 07:25] LABS: ALANINE AMINOTRANSFERASE 7 U/L (12-78); ALBUMIN 1.7 g/dL (3.4-5.0); ANION GAP 7 mmol/L (8-16); ASPARTATE AMINOTRANSFERASE 16 U/L (15-37); BILIRUBIN,TOTAL 0.3 mg/dL (0.1-1.0); CALCIUM, TOTAL 8.2 mg/dL (8.8-10.5); CARBON DIOXIDE 27 mmol/L (22-29); CHLORIDE 109 mmol/L (98-107); CREATININE 0.87 mg/dL (0.60-1.30); GLOMERULAR FILTR. RATE CALC > 60 mL/min (>60); POTASSIUM 3.4 mmol/L (3.5-5.1); SODIUM SERUM 143 mmol/L (136-145); TOTAL PROTEIN, SERUM 5.7 g/dL (6.4-8.2); UREA NITROGEN, BLOOD 6 mg/dL (7-18)
[2016-07-07 07:37] VITALS: BP 128/64
[2016-07-07] MEDS: MULTIVITAMINS, THERAPEUTIC TABLET PO SCH (08:39)
[2016-07-07] MEDS: BENZONATATE 100 MG CAPSULE PO SCH ×3 (08:40→21:05)
[2016-07-07] MEDS: HEPARIN SODIUM,PORCINE 5,000 UNITS/ML VIAL SQ SCH ×3 (08:41→23:45)
[2016-07-07] MEDS: PANTOPRAZOLE SODIUM 40 MG/VIAL IVP SCH (08:42)
[2016-07-07] MEDS: AMIODARONE HCL 200 MG TABLET PO SCH ×2 (08:42→21:07)
[2016-07-07 09:00] LABS: RBC MORPHOLOGY COMMENT ABNORMAL RBC MORPH
[2016-07-07] MEDS: MetroNIDAZOLE 500 MG/NACL 100 ML IV SCH ×3 (09:44→23:45)
[2016-07-07] MEDS: MAGNESIUM OXIDE 400 MG TABLET PO PRN (12:27)
[2016-07-07 13:46] VITALS: BP 132/68
[2016-07-07 20:02] VITALS: BP 135/73
[2016-07-07] MEDS: POTASSIUM CHLORIDE 20 MEQ ER TABLET PO PRN (23:46)
[2016-07-07 23:52] VITALS: BP 144/75
[2016-07-08] MEDS: PIPERACILLIN/TAZO 3.375 GM/D5W 50 ML IV SCH ×3 (02:01→15:20)
[2016-07-08] MEDS: SODIUM CHLORIDE 0.45% 1,000 ML IV SCH (02:02)
[2016-07-08] MEDS: GuaiFENesin/D-METHORPHAN/PHENYLEPH 5 ML LIQUID ORAL.SYG PO SCH ×3 (03:39→12:19)
[2016-07-08 04:16] VITALS: BP 149/80
[2016-07-08 06:33] LABS: MAGNESIUM 1.6 mg/dL (1.80-2.40); POTASSIUM 3.7 mmol/L (3.5-5.1)
[2016-07-08 07:37] VITALS: BP 142/82
[2016-07-08] MEDS: PROMETHAZINE HCL/CODEINE 6.25-10MG/5ML SYRUP UDCUP PO PRN (07:48)
[2016-07-08] MEDS: HEPARIN SODIUM,PORCINE 5,000 UNITS/ML VIAL SQ SCH (08:19)
[2016-07-08] MEDS: PANTOPRAZOLE SODIUM 40 MG/VIAL IVP SCH (08:19)
[2016-07-08] MEDS: POTASSIUM CHLORIDE 20 MEQ ER TABLET PO PRN (08:19)
[2016-07-08] MEDS: MAGNESIUM OXIDE 400 MG TABLET PO PRN (08:20)
[2016-07-08] MEDS: AMIODARONE HCL 200 MG TABLET PO SCH (08:20)
[2016-07-08] MEDS: MULTIVITAMINS, THERAPEUTIC TABLET PO SCH (08:21)
[2016-07-08] MEDS: BENZONATATE 100 MG CAPSULE PO SCH (08:21)
[2016-07-08] MEDS: MetroNIDAZOLE 500 MG/NACL 100 ML IV SCH (09:45)
[2016-07-08 11:30] VITALS: BP 144/74
[2016-07-08 16:29] VITALS: BP 119/77
[2016-07-12] MEDS ORDERED: AMIODARONE HCL 200 MG TABLET PO SCH (09:00)
[2016-07-19] MEDS ORDERED: AMIODARONE HCL 200 MG TABLET PO SCH (09:00)
== END 2016-07-08 19:30 | DRG 853 ==
LOC: EMS 18:50 → 6N 22:30 → ICU 06-25 20:35 → 5S 06-29 18:30
PROVIDERS: ADMIT Family Medicine; ATTEND Family Medicine
PROC: 5A1945Z Respiratory Ventilation, 24-96 Consecutive Hours (ICD-10-PCS; 2016-06-25)
PROC: 0BH17EZ Insertion of Endotracheal Airway into Trachea, Via Natural or Artificial Opening (ICD-10-PCS; 2016-06-25)
PROC: 5A12012 Performance of Cardiac Output, Single, Manual (ICD-10-PCS; 2016-06-25)
PROC: 0DTJ4ZZ Resection of Appendix, Percutaneous Endoscopic Approach (ICD-10-PCS; principal; 2016-06-25 19:45)
PROC: 0W9B30Z Drainage of Left Pleural Cavity with Drainage Device, Percutaneous Approach (ICD-10-PCS; 2016-06-26)
DX: A41.9 Sepsis, unspecified organism (principal); I46.9 Cardiac arrest, cause unspecified; J96.00 Acute respiratory failure, unspecified whether with hypoxia or hypercapnia; N17.0 Acute kidney failure with tubular necrosis; R65.21 Severe sepsis with septic shock; K35.80 Unspecified acute appendicitis; I50.42 Chronic combined systolic (congestive) and diastolic (congestive) heart failure; E87.3 Alkalosis; N39.0 Urinary tract infection, site not specified; E44.0 Moderate protein-calorie malnutrition; J93.9 Pneumothorax, unspecified; D64.9 Anemia, unspecified; E11.9 Type 2 diabetes mellitus without complications; E78.5 Hyperlipidemia, unspecified; E83.42 Hypomagnesemia; E87.6 Hypokalemia; I44.0 Atrioventricular block, first degree; R07.2 Precordial pain; I48.2 Chronic atrial fibrillation; I11.0 Hypertensive heart disease with heart failure; K52.9 Noninfective gastroenteritis and colitis, unspecified; M19.90 Unspecified osteoarthritis, unspecified site; I49.5 Sick sinus syndrome; J11.1 Influenza due to unidentified influenza virus with other respiratory manifestations; I48.0 Paroxysmal atrial fibrillation; Z68.35 Body mass index [BMI] 35.0-35.9, adult; Z79.899 Other long term (current) drug therapy; Z90.49 Acquired absence of other specified parts of digestive tract
CPT/HCPCS: 74176; 82805; 83036; 83605; 83735; 84100; 84132; 87081; 87324; 87449; 88304; 92526; 92610; 93005; 93306; 94002; 94003; 94640; 96361; 96365; 96375; 97110; 97112; 97163; 97166; 97530; 97535; 99285; C9113; J0171; J0330; J0360; J1170; J1644; J2270; J2405; J2543; J2704; J3010; J3475; J3480; J3490; J7030; J7040; J7050; J7060

== ENCOUNTER 2016-09-03 15:31 | Inpatient (IN) | payer OTHER ==
[~2016-09-03] VITALS: Ht 152.4 cm; Wt 76.1 kg
[~2016-09-03 15:31] MED LIST changes: +45NS1000 IV; -ACET-784 PO; -AMIO200T44 PO; -AMLO-511 PO; -ATOR20TA86 PO; +AUD NEB; -BENZ-26 PO; -DIGO125T PO; -DSS100 PO; -FERG325 PO; -GLYB5 PO; +GUAIFCF5L PO; +HEPA500017 SQ; +HYDR-309 PO; +HYDR20I IV; -MECL-111 PO; +METR500IV IV; +MORP2CAR IV; +MV-M1TAB2 PO; +ONDA4 IM; +PANT40I IV; -PANT40TA25 PO; +PIPE3.379 IV; -PRED20 PO; +PROMVCC5L PO; -SUCR1TAB22 PO; +[UNRECOGNIZED DRUG - CODE] IV
[2016-09-03] MEDS ORDERED: AMLO-511 PO (16:03)
[2016-09-03] MEDS ORDERED: MECL-111 PO (16:03)
[2016-09-03] MEDS ORDERED: ATOR20TA86 PO (16:03)
[2016-09-03] MEDS ORDERED: DIGO125T PO (16:03)
[2016-09-03] MEDS ORDERED: AMIO200T44 PO (16:03)
[2016-09-03] MEDS ORDERED: DEXTROSE 50%-WATER 25 GM/50 ML SYRINGE IVP ONE ×3 (16:15→20:00)
[2016-09-03 16:57] LABS: GLUCOSE,POINT OF CARE 26 MG/DL (70-110)
[2016-09-03 17:23] LABS: GLUCOSE,POINT OF CARE 230 MG/DL (70-110)
[2016-09-03 17:29] LABS: BASOPHILS % (AUTO) 0.3 % (0.0-2.0); EOSINOPHILS % (AUTO) 1.2 % (1.0-6.0); LYMPHOCYTES # (AUTO) 0.9 K/uL (1.0-4.8); LYMPHOCYTES % (AUTO) 16.8 % (22.0-44.0); MEAN CORPUSCULAR HEMOGLOBIN 31.3 pg (26.0-34.0); MEAN CORPUSCULAR HGB CONC 33.2 G/dL (31.0-37.0); MEAN CORPUSCULAR VOLUME 94 fL (80-100); MONOCYTES # (AUTO) 0.4 K/uL (0.1-1.0); MONOCYTES % (AUTO) 7.3 % (2.0-9.0); NEUTROPHILS # (AUTO) 4.2 K/uL (1.8-7.7); NEUTROPHILS % (AUTO) 74.4 % (40.0-70.0); PLATELET COUNT (AUTO) 242 K/uL (150-450); RED CELL DISTRIBUTION WIDTH 17.2 % (11.5-14.5); WHITE BLOOD COUNT (AUTO) 5.6 K/uL (4.5-11.0)
[2016-09-03 17:33] LABS: ANION GAP 9 mmol/L (8-16); CARBON DIOXIDE 27 mmol/L (22-29); CHLORIDE 103 mmol/L (98-107); CREATININE 1.42 mg/dL (0.60-1.30); GLOMERULAR FILTR. RATE CALC 35 mL/min (>60); POTASSIUM 3.1 mmol/L (3.5-5.1); SODIUM SERUM 139 mmol/L (136-145); UREA NITROGEN, BLOOD 12 mg/dL (7-18)
[2016-09-03 17:39] LABS: ALANINE AMINOTRANSFERASE 18 U/L (12-78); ALBUMIN 2.6 g/dL (3.4-5.0); ASPARTATE AMINOTRANSFERASE 22 U/L (15-37); BILIRUBIN,TOTAL 0.3 mg/dL (0.1-1.0); TOTAL PROTEIN, SERUM 5.9 g/dL (6.4-8.2)
[2016-09-03 17:42] LABS: AMMONIA < 10 umol/L (11-32); TROPONIN I < 0.02 ng/mL (0.00-0.05)
[2016-09-03 17:58] LABS: APPEARANCE,URINE CLEAR (CLEAR); GLUCOSE, URINE (UA) 250 mg/dL (NEGATIVE); KETONES,URINE NEGATIVE (NEGATIVE); LEUKOCYTE ESTERASE ,URINE NEGATIVE (NEGATIVE); OCCULT BLOOD,URINE NEGATIVE (NEGATIVE); PROTEIN,URINE NEGATIVE (NEGATIVE)
[2016-09-03 17:59] LABS: B-TYPE NATRIURETIC PEPTIDE 147 pg/mL (0-100)
[2016-09-03 18:00] LABS: ADD UA MICROSCOPIC NO; RBC,URINE 0-2 /HPF (0-2); WBC,URINE 0-2 /HPF (0-5)
[2016-09-03 18:02] LABS: SQUAMOUS EPITHELIAL CELL,UR Few /LPF (None Seen)
[2016-09-03 18:03] LABS: RBC MORPHOLOGY COMMENT ABNORMAL RBC MORPH
[2016-09-03 18:33] LABS: GLUCOSE,POINT OF CARE 109 MG/DL (70-110)
[2016-09-03] MEDS ORDERED: METF500T4 PO (19:11)
[2016-09-03] MEDS ORDERED: SODIUM CHLORIDE 77 MEQ in DEXTROSE 10%-WATER 1,000 ML IV ONE (19:15)
[2016-09-03] MEDS ORDERED: ONDANSETRON HCL 4 MG/2 ML VIAL IVP PRN (19:15)
[2016-09-03] MEDS ORDERED: POTASSIUM CHLORIDE 20 MEQ ER TABLET PO ONE (19:15)
[2016-09-03] MEDS ORDERED: ACETAMINOPHEN 325 MG TABLET PO PRN ×2 (19:15→22:00)
[2016-09-03] MEDS ORDERED: 0.9% SODIUM CHLORIDE 10 ML SYRINGE IVP PRN (19:15)
[2016-09-03 21:17] VITALS: BP 125/70
[2016-09-03] MEDS ORDERED: DEXTROSE 50%-WATER 25 GM/50 ML SYRINGE IVP PRN (22:00)
[2016-09-03] MEDS ORDERED: INSULIN ASPART 100 UNITS/ML SQ PRN (22:00)
[2016-09-03] MEDS ORDERED: ALBUTEROL SULFATE 2.5 MG/0.5 ML NEB SOLUTION NEB PRN (22:00)
[2016-09-03] MEDS ORDERED: BISACODYL 10 MG RECTAL RECTAL SUPPOSITORY PR PRN (22:00)
[2016-09-03 23:17] VITALS: BP 112/53
[2016-09-04] VITALS (7 sets, daily range): BP systolic 94–140; BP diastolic 52–69
[2016-09-04 07:22] LABS: CALCIUM, TOTAL 8.2 mg/dL (8.8-10.5); CREATININE 0.93 mg/dL (0.60-1.30); POTASSIUM 3.8 mmol/L (3.5-5.1)
[2016-09-04] MEDS: APIXABAN 5 MG TABLET PO SCH ×2 (08:25→20:42)
[2016-09-04] MEDS: PANTOPRAZOLE SODIUM 40 MG DR TABLET PO SCH (08:25)
[2016-09-04] MEDS: CARVEDILOL 6.25 MG TABLET PO SCH ×2 (08:25→20:42)
[2016-09-04] MEDS: FUROSEMIDE 20 MG/2 ML VIAL IVP SCH ×2 (08:26→20:47)
[2016-09-04] MEDS: DOCUSATE SODIUM 100 MG CAPSULE PO SCH ×2 (08:42→20:47)
[2016-09-04 10:51] LABS: GLUCOSE,POINT OF CARE 181 MG/DL (70-110)
[2016-09-04 10:51] LABS: GLUCOSE,POINT OF CARE 54 MG/DL (70-110)
[2016-09-04 10:55] LABS: GLUCOSE COMMENT 1 Juice/Food/D50 Given; GLUCOSE,POINT OF CARE 101 MG/DL (70-110)
[2016-09-04 10:56] LABS: GLUCOSE COMMENT 1 Juice/Food/D50 Given; GLUCOSE,POINT OF CARE 83 MG/DL (70-110)
[2016-09-04 11:01] LABS: GLUCOSE COMMENT 1 Juice/Food/D50 Given; GLUCOSE,POINT OF CARE 94 MG/DL (70-110)
[2016-09-04 11:01] LABS: GLUCOSE COMMENT 1 Juice/Food/D50 Given; GLUCOSE,POINT OF CARE 134 MG/DL (70-110)
[2016-09-04 13:07] LABS: GLUCOSE,POINT OF CARE 95 MG/DL (70-110)
[2016-09-04 17:32] LABS: GLUCOSE COMMENT 1 Received Meds; GLUCOSE,POINT OF CARE 142 MG/DL (70-110)
[2016-09-04] MEDS ORDERED: ATORVASTATIN CALCIUM 20 MG TABLET PO SCH (21:00)
[2016-09-04 23:52] LABS: GLUCOSE COMMENT 1 Juice/Food/D50 Given; GLUCOSE,POINT OF CARE 100 MG/DL (70-110)
[2016-09-05 03:54] VITALS: BP 141/71
[2016-09-05 06:27] LABS: GLUCOSE COMMENT 1 Juice/Food/D50 Given; GLUCOSE,POINT OF CARE 93 MG/DL (70-110)
[2016-09-05 07:48] VITALS: BP 142/65
[2016-09-05] MEDS: PANTOPRAZOLE SODIUM 40 MG DR TABLET PO SCH (08:14)
[2016-09-05] MEDS: APIXABAN 5 MG TABLET PO SCH (08:14)
[2016-09-05] MEDS: FUROSEMIDE 20 MG/2 ML VIAL IVP SCH (08:14)
[2016-09-05] MEDS: DOCUSATE SODIUM 100 MG CAPSULE PO SCH (08:14)
[2016-09-05] MEDS: CARVEDILOL 6.25 MG TABLET PO SCH (08:14)
[2016-09-05 11:23] VITALS: BP 138/71
[2016-09-05 12:13] LABS: GLUCOSE,POINT OF CARE 120 MG/DL (70-110)
[2016-09-05] MEDS ORDERED: FURO20 PO ×2 (13:36→13:46)
[2016-09-05] MEDS ORDERED: KDUR10 PO (13:36)
[2016-09-05] MEDS ORDERED: CARV6 PO (13:46)
[2016-09-05] MEDS ORDERED: APIX5TAB PO (13:46)
[2016-09-05] MEDS ORDERED: OMEP20 PO (13:51)
== END 2016-09-05 14:51 | disposition home or self-care (01) | DRG 637 ==
LOC: EMS 15:33 → 6N 19:23
PROVIDERS: ADMIT Internal Medicine; ATTEND Internal Medicine
DX: E11.649 Type 2 diabetes mellitus with hypoglycemia without coma (principal); E43 Unspecified severe protein-calorie malnutrition; I50.20 Unspecified systolic (congestive) heart failure; G92 Toxic encephalopathy; E11.65 Type 2 diabetes mellitus with hyperglycemia; E66.9 Obesity, unspecified; E87.6 Hypokalemia; I48.0 Paroxysmal atrial fibrillation; I11.0 Hypertensive heart disease with heart failure; R62.7 Adult failure to thrive; Z82.49 Family history of ischemic heart disease and other diseases of the circulatory system; Z83.3 Family history of diabetes mellitus; Z68.32 Body mass index [BMI] 32.0-32.9, adult; Z90.49 Acquired absence of other specified parts of digestive tract
CPT/HCPCS: 82306; 82962; 87081; 93005; 96374; 96376; 97116; 97162; 97530; 99291; G0480; J1940; J7131

== ENCOUNTER → 2016-10-20 | Outpatient (CLI) | payer OTHER ==
[~2016-10-20] MED LIST changes: -45NS1000 IV; +APIX5TAB PO; +ATOR20TA86 PO; -AUD NEB; +CARV6 PO; +FURO20 PO; -GUAIFCF5L PO; -HEPA500017 SQ; -HYDR-309 PO; -HYDR20I IV; -IPRNEB IH; +KDUR10 PO; -METR500IV IV; -MORP2CAR IV; +OMEP20 PO; -ONDA4 IM; -PANT40I IV; -PIPE3.379 IV; -PROMVCC5L PO; -[UNRECOGNIZED DRUG - CODE] IV
== END | disposition home or self-care (01) ==
LOC: RADPV 14:55
PROVIDERS: ATTEND Family Medicine
DX: M17.0 Bilateral primary osteoarthritis of knee (principal)